=== PATIENT | female | born 1945 | race Caucasian/White ===

== ENCOUNTER 2017-10-11 09:35 | Inpatient (IN) | payer MEDICARE, SELFPAY ==
[2017-10-11] VITALS (12 sets, daily range): BP systolic 135–179; BP diastolic 56–83; PULSE 80–94; RESP 15–18; TEMP 36.8–37.2; O2SAT 97–100; BMI 30.1; BMI 28.8
--- NOTE | 2017-10-11 09:47 | EKG12_ITS ---
Test Reason : CP Blood Pressure : / mmHG Vent. Rate : 093 BPM Atrial Rate : 093 BPM P-R Int : 170 ms QRS Dur : 090 ms QT Int : 436 ms P-R-T Axes : 049 -04 068 degrees QTc Int : 542 ms Normal sinus rhythm Septal infarct , age undetermined Prolonged QT Abnormal ECG Confirmed by BENY JOHNSTON ([id number]), index editor ERMELINDA BYRD ([id number]) on 10/20/2017 6:04:47 PM Referred By: SCOTT Confirmed By:BENY JOHNSTON
--- NOTE | 2017-10-11 09:47 | RAD_ITS ---
STUDY: X-RAY CHEST REASON FOR EXAM: Female, 72 years old. Pain TECHNIQUE: Single AP portable view of the chest. COMPARISON: August 08, 2016 chest x-ray FINDINGS: There is persistent trace linear density in the lingula. There is no demonstrated pleural abnormality. There is borderline cardiomegaly. Normal mediastinum and lynn. Normal visualized pulmonary arteries. There is atherosclerotic calcification of the aortic arch with tortuosity. There are diffuse degenerative changes of the visualized thoracic spine. Normal visualized ribs, clavicles, and shoulders. There is no demonstrated abnormality of the visualized soft tissue structures of the upper abdomen. RAD/Chest 1 View (Portable) IMPRESSION: Persistent lingular atelectasis and/or scarring. Electronically Signed: Hilary Headley MD at 10:12 EDT Tel , Service support ,
[2017-10-11] MEDS: Nitroglycerin Oint 1 INCH PACKET TRANSDERM. (09:55)
--- NOTE | 2017-10-11 09:57 | ED.VISSUMM ---
- ER Visit Summary Date of Service: 10/11/17 Chief Complaint: Chest pain History of Present Illness: The patient is a [address] Dov Silveira, Dr. Brantd, and Dr. Dailey. Reports that she was awakened this morning at 8 AM by a substernal chest tightness that radiated to the left side of her neck. It was 10 at 10 worst and 6 out of 10 currently. Is worsened by exertion. She took 3 nitroglycerin with transient relief. She reports it makes her nauseated and diaphoretic. States this is similar to when she had problems with her heart in the past. Physical Examination: Vitals: Stable. Afebrile. General: Well-nourished and well-developed. Head: Normocephalic atraumatic. Neck: Supple, no lymphadenopathy. No JVD. Nontender. Cardiovascular: Regular rate and rhythm. 2 out of 6 systolic murmur. Respiratory: No respiratory distress. Clear to auscultation bilaterally. Abdominal: Soft, mild epigastric tenderness to palpation, nondistended, normal bowel sounds. No guarding, rebound, or peritoneal signs. Back: Nontender. Extremities: Nontender, no edema. Skin: Normal color, no rash. Neurologic: Alert and oriented ?3. Cranial nerves II through XII are intact. Normal strength and sensation. Psych: Normal affect. Test Results: EKG is sinus at [address] changes. Is unchanged from July 2016. Initial troponin is 0.035. LFTs marked for an albumin of 2.8, alk phos of 143. Lipase is normal. Chem-7 is more for CO2 33, creatinine 3.07, glucose 134. CBC is marked for an H&H 10.732.2, eosinophils of 8. Chest x-ray shows chronic changes. Emergency Department Course and Treatment: Patient was treated with aspirin had Nitropaste placed. She was given morphine and Zofran IV. She is resting comfortably at this time. Treatment Plan: Patient was discussed with Dr. Ibrhaim. She will be admitted to the hospital for further evaluation and treatment. Disposition: Admitted in improved condition. Impression: 1. Chest pain, atypical. 2. NAKUL score 4. 3. End-stage renal disease. This note was generated with [employer] software. It may contain incorrect words, spelling, and punctuation that were not noted in review of the chart prior to signing ED Disposition - Plan for ED Patient: Chief Complaint: Chest Pain Referrals: Thad Brandt MD [Primary Care Provider] -
[2017-10-11] MEDS: Morphine 4 MG/ML Syringe IV (09:59)
[2017-10-11] MEDS: Ondansetron 4 MG/2 ML Vial IV (09:59)
[2017-10-11] MEDS: 0.9% Normal Saline 1,000 ML 150 ML IV (10:00)
--- NOTE | 2017-10-11 10:00 | ED.DCSUM_ITS ---
- ER Visit Summary Date of Service: 10/11/17 Chief Complaint: Chest pain History of Present Illness: The patient is a [address] Dov Silveira, Dr. Brandt, and Dr. Dailey. Reports that she was awakened this morning at 8 AM by a substernal chest tightness that radiated to the left side of her neck. It was 10 at 10 worst and 6 out of 10 currently. Is worsened by exertion. She took 3 nitroglycerin with transient relief. She reports it makes her nauseated and diaphoretic. States this is similar to when she had problems with her heart in the past. Physical Examination: Vitals: Stable. Afebrile. General: Well-nourished and well-developed. Head: Normocephalic atraumatic. Neck: Supple, no lymphadenopathy. No JVD. Nontender. Cardiovascular: Regular rate and rhythm. 2 out of 6 systolic murmur. Respiratory: No respiratory distress. Clear to auscultation bilaterally. Abdominal: Soft, mild epigastric tenderness to palpation, nondistended, normal bowel sounds. No guarding, rebound, or peritoneal signs. Back: Nontender. Extremities: Nontender, no edema. Skin: Normal color, no rash. Neurologic: Alert and oriented ?3. Cranial nerves II through XII are intact. Normal strength and sensation. Psych: Normal affect. Test Results: EKG is sinus at [address] changes. Is unchanged from July 2016. Initial troponin is 0.035. LFTs marked for an albumin of 2.8 , alk phos of 143. Lipase is normal. Chem-7 is more for CO2 33, creatinine 3.07, glucose 134. CBC is marked for an H&H 10.732.2, eosinophils of 8. Chest x-ray shows chronic changes. Emergency Department Course and Treatment: Patient was treated with aspirin had Nitropaste placed. She was given morphine and Zofran IV. She is resting comfortably at this time. Treatment Plan: Patient was discussed with Dr. Ibrahim. She will be admitted to the hospital for further evaluation and treatment. Disposition: Admitted in improved condition. Impression: 1. Chest pain, atypical. 2. NAKUL score 4. 3. End-stage renal disease. This note was generated with [employer] software. It may contain incorrect words, spelling, and punctuation that were not noted in review of the chart prior to signing ED Disposition - Plan for ED Patient: Chief Complaint: Chest Pain Referrals: Thad Brandt MD [Primary Care Provider] -
[2017-10-11 10:09] LABS: Absolute Lymphocyte Count 1.57 X10^3/ul (0.83-4.51); Absolute Neutrophil Count 4.5 X10^3/uL (2.0-7.7); Basophil# 0.02 X10^3/uL; Basophil% 0.3 % (0-1); Eosinophil# 0.54 X10^3/uL; Eosinophils% 7.5 % (0-5); Hematocrit 32.2 % (37-47); Hemoglobin 10.7 g/dl (12.0-15.0); Lymphocyte # 1.57 X10^3/ul (4.0); Lymphocyte % 21.7 % (19-41); Mean Corp Hgb Conc 33.2 g/gl (32-36); Mean Corpuscular Hgb 31.8 pg (27.0-32.0); Mean Corpuscular Volume 95.8 fL (81-99); Mean Platelet Vol. 8.6 fl (6.2-12.0); Monocyte# 0.54 X10^3/uL; Monocyte% 7.5 % (0-10); Neutrophil # 4.54 X10^3/uL (2.7-7.7); Neutrophil % 62.7 % (47-70); Platelet Count 263 K/mm3 (150-450); RBC Distribution Width CV 15.8 % (11.6-14.6); Red Blood Count 3.36 M/mm3 (4.2-5.4); White Blood Count 7.2 K/mm3 (4.4-11.0)
[2017-10-11 10:10] LABS: POSITIVE COUNT NO; POSITIVE DIFFERENTIAL NO; POSITIVE MORPHOLOGY NO
[2017-10-11 10:26] LABS: AST(SGOT) 33 U/L (15-37); Alanine Aminotransfer ALT/SGPT 16 U/L (13-56); Albumin, Serum 2.8 g/dL (3.2-5.0); Alkaline Phosphatase 143 U/L (45-117); Bilirubin, Direct 0.11 mg/dL (0.00-0.30); Globulin 4.1 g/dL (2.2-4.2); Protein, Total 6.9 g/dL (6.4-8.2)
[2017-10-11 10:31] LABS: BUN 15 mg/dL (7-18); Creatinine, Serum 3.07 mg/dL (0.55-1.02); Glucose 134 mg/dL (74-106)
[2017-10-11 10:32] LABS: Anion Gap 6 (5-15); BUN/Creat Ratio 4.9 RATIO (10-20); Calcium,Total 8.8 mg/dL (8.5-10.1); Chloride 100 mmol/L (98-107); EST Glomerular Filtration Rate 16 mL/min (>60); Est Glom Filt Rate - Afr Amer 19 mL/min (>60); Estimated Creatinine Clearance 13.29 ml/min; Lipase 95 U/L (73-393); Potassium 3.5 mmol/L (3.5-5.1); Sodium Level 139 mmol/L (136-145)
--- NOTE | 2017-10-11 12:50 | NURSING ---
Patient does not know medications. Grand daughter sets up patient's medication at home and will be in later to update medication list.
--- NOTE | 2017-10-11 13:00 | EKG12_ITS ---
Test Reason : CP Blood Pressure : / mmHG Vent. Rate : 075 BPM Atrial Rate : 075 BPM P-R Int : 178 ms QRS Dur : 088 ms QT Int : 456 ms P-R-T Axes : 008 -03 066 degrees QTc Int : 509 ms Normal sinus rhythm Septal infarct , age undetermined Abnormal ECG Confirmed by SENA ARIAS, DONA ([id number]), video effects editor ERMELINDA BYRD ([id number]) on 10/24/2017 2:16:34 PM Referred By: ANGELICA Confirmed By:DONA SHETTY MD
[2017-10-11] MEDS: Glucerna Shake 120 ML LIQUID PO (13:49)
[2017-10-11] MEDS: Isosorbide DN 20 MG Tablet PO ×2 (13:49→19:59)
[2017-10-11] MEDS: Ipratropium/Albuterol Sulfate 3 ML AMPUL.NEB INHALATION (14:19)
--- NOTE | 2017-10-11 16:03 | PCM.HP.STD ---
<Marcello Krishnan - Last Filed: 10/11/17 16:03> Problem List (1) Chest pain Status: Acute (2) ESRD (end stage renal disease) Status: Chronic (3) Coronary artery disease Status: Chronic Comment: Status post stent (4) Type II diabetes mellitus Status: Chronic (5) Asthma Status: Chronic (6) Anemia of chronic disease Status: Chronic (7) Congestive heart failure Status: Chronic (8) Benign hypertension Status: Chronic History of Present Illness Date of Admission: 10/11/17 Chief Complaint: chest pain The patient is a 72 year old F with a hx of CAD prior stent x 1, pt of Dr. Silveira, hx CHF, ESRD, DMt2, asthma, obesity, who presents to the ER with chest pain. She woke up this mornign with severe 9/10 chest pain described as aching, across her anterior chest left > right side with radiation into her neck and pradeep that she felt was like a toothache, with radiation into her left arm and into her back. She broke out into a sweat and became dizzy and LH with the room spinning, and became very SOB. She states this happens about once every 2 months and she has not had it checked out for years, she just takes nitro at home. She did take three nitro at home today and after the third had some relief of pain to 7/10. She was brought to the ER and had no relief with morphine. At some point the pain let off spontaneously as she has no chest pain at all on the hospital floor. She has [address] stent and follows Dr[address] Silveira but admits she has not been following up. She was told she was supposed to have another stent placed about 2 years ago, but at that time she was on the border of needing dialysis and was told they would not do it until she started dialysis, then she never followed up. She follows a patient service technician pst in [place] but does not want to trave there anymore and is requesting a patient service technician pst closer to [place], specifically asking for Dr. Richardson. [] Past Medical History Past Medical History (Chronic Problems): Chronic Problems ESRD (end stage renal disease) (Chronic) Coronary artery disease (Chronic) Status post stent RTA (renal tubular acidosis) (Chronic) Type 4 Type II diabetes mellitus (Chronic) CKD (chronic kidney disease), stage II (Chronic) Cervicogenic headache (Chronic) Asthma (Chronic) Anemia of chronic disease (Chronic) Congestive heart failure (Chronic) Benign hypertension (Chronic) Allergies donepezil [From Aricept] Adverse Reaction (Verified 10/11/17 09:37) dizzy Home Medications: Ambulatory Orders Medication Instructions Recorded Albuterol IH (ProAir) [Proair Hfa] 2 puff INHALATION Q4H PRN PRN 07/04/14 Atorvastatin Calcium [Lipitor] 80 mg PO QHS 07/04/14 Carvedilol [Coreg (Beta Lela)] 12.5 mg PO BID 07/04/14 Clopidogrel Bisulfate [Plavix] 75 mg PO DAILY 07/04/14 Furosemide [Lasix] 80 mg PO DAILY 07/04/14 Sertraline HCl [Zoloft] 100 mg PO DAILY 07/04/14 Calcitriol [Rocaltrol] 0.25 mcg PO DAILY 01/23/16 Magnesium Oxide 400 mg PO DAILY 01/23/16 Aspirin E.C. [Ecotrin] 81 mg PO DAILY@0800 07/08/16 Cholecalciferol (Vitamin D3) 1,000 unit PO DAILY 07/29/16 [Vitamin D3] Ipratropium/Albuterol Sulfate 3 ml INHALATION Q6H.RT 07/29/16 [Duoneb] Nitroglycerin [Nitrostat] 0.4 mg SL PRN PRN 07/29/16 buPROPion XL [Wellbutrin Xl] 150 mg PO DAILY 07/29/16 Pantoprazole Sodium [Protonix] 40 mg PO DAILY #30 tablet 07/31/16 Fluticasone/Salmeterol [Advair 1 each IH BID 12/01/16 250-50 Diskus] hydrOXYzine pamoate capsule 25 mg PO BID PRN PRN 12/01/16 [Vistaril pamoate capsule] Acetaminophen [Tylenol Tablet] 650 mg PO Q4H PRN PRN tablet 12/03/16 Albuterol Aerosols [Ventolin 2.5 mg INHALATION Q4H PRN PRN 10/11/17 Aerosols] Isosorbide DN [Isordil] 20 mg PO BID 10/11/17 Ondansetron HCl [Zofran] 1 tab PO BID PRN PRN 10/11/17 Surgical History: appendectomy, cholecystectomy Psychiatric History: No pertinent psych hx RETORT OPERATOR History: No pertinent RETORT OPERATOR history Lives: With Family Smoking Status: Never smoker Alcohol: None Drugs: None - *Family History Maternal History Items: Heart Disease Paternal History Items: Cancer - stomach, Heart Disease Review of Systems Constitutional: Denies: Chills, Fever, Weight Change HEENT: Denies: Head Aches, Sinus Congestion, Sinus Drainage Cardiovascular: Reports: Chest Pain, Light Headedness. Denies: Palpitations Respiratory: Reports: Shortness of Breath, Shortness of breath at rest. Denies: Cough, Sputum production Gastrointestinal: Denies: Abdominal Pain, Nausea, Vomiting Genitourinary: Denies: Dysuria Musculoskeletal: Denies: Joint Pain, Joint Tenderness Skin: Denies: Rash, Wounds Neurological: Denies: Numbness, Tingling, Focal weakness Psychiatric: Denies: Anxiety, Depression, Homicidal Ideations, Suicidal Ideations Hematologic/ Lymphatic: Denies: Easy Bruising, Easy Bleeding VTE Information - Inpt Only VTE Present on Admission: No VTE Mechan Device Prophylaxis: None VTE Pharm Prophylaxis ordered?: Yes Patient Problems: Active and Suspected Problems Chest pain (Acute) - Physical Exam General: Alert, Oriented x3, Cooperative HEENT: Atraumatic, PERRLA, EOMI, Normocephalic Neck: Supple, No JVD, Negative Carotid Bruits Lungs: Clear to auscultation, Normal air movement Cardiovascular: Regular rate, Regular Rhythm, Murmur - 2/6 systolic murmur Abdomen: Bowel Sounds Present, Soft, Non Tender Extremities: No edema, Capillary Refill Less than 3 Seconds Skin: No rashes, No breakdown Musculoskeletal: No Tenderness to Palpation of Joints or Extremities Neurological: Cranial nerves II-XII grossly intact Psych/Mental Status: Normal Affect, Appropriate, Alert and oriented to time, place, person, mood and affect Vital Signs Temp Pulse Resp BP Pulse Ox 98.9 F 84 16 136/63 H 98 10/11/17 12:50 10/11/17 14:19 10/11/17 14:19 10/11/17 12:50 10/11/17 14:19 Oxygen Delivery Method Room Air Weight: 71.6 kg Body Mass Index (BMI) 28.8 Laboratory Tests Past 24 Hrs 10/11/17 13:15 Troponin I 0.034 Assessment/Plan All Active Problems Chest pain (Acute) Confusion (Resolved) UTI (urinary tract infection) (Resolved) Chest pressure (Resolved) Healthcare-associated pneumonia (Resolved) 1. Chest pain - risk factors include symptomology, relieved with nitro, prior stent and known CAD, HTN, CHF, DMt2, family hx. Trop neg. CXR neg. EKG neg. Maintain on tele, cycle enzymes and obtain stress test on friday. Follows [facility] as o/p. 2. CHF - ? diastolic, stable, last echo here 2014 with EF50%. 3. DMt2 - currently not on anything. Check A1C. Diabetic diet. 4. ESRD - consult Richardson tomorrow to resume dialysis, MWF, had yesterday. 5. CAD - on asa, plavix, statin, coreg, isordil, hx 1 stent. 6. HTN - trending high. monitor and adjust as needed 7. Anx/Dep - home meds. DVT ppx: heparin DC planning: stress friday. This patient was seen by Marcello Krishnan PA-C under the supervision of Doctor Patrice. <Carlitos Ibrahim - Last Filed: 10/11/17 16:30> Problem List (1) Chest pain Status: Acute (2) ESRD (end stage renal disease) Status: Chronic (3) Chest pressure Status: Resolved (4) Confusion Status: Resolved (5) Healthcare-associated pneumonia Status: Resolved (6) UTI (urinary tract infection) Status: Resolved (7) Anemia of chronic disease Status: Chronic (8) Asthma Status: Chronic (9) Benign hypertension Status: Chronic (10) Congestive heart failure Status: Chronic (11) Coronary artery disease Status: Chronic Comment: Status post stent (12) RTA (renal tubular acidosis) Status: Chronic Comment: Type 4 (13) Type II diabetes mellitus Status: Chronic History of Present Illness The patient is a 72 year old F Sonu with chest pain for 1 day. Patient took some nitroglycerin without relief. Presents emergency room received additional pain medications which did alleviate her pain. Patient does have a history of coronary artery disease with a stent. Patient stated this chest pain is similar to then.. Patient states that she has been told that she needs to have another stent placed but was unable to have a heart catheterization until she was started on dialysis. Has not followed up recently. [] Past Medical History Allergies donepezil [From Aricept] Adverse Reaction (Verified 10/11/17 09:37) dizzy Surgical History: appendectomy, cholecystectomy Psychiatric History: No pertinent psych hx RETORT OPERATOR History: No pertinent RETORT OPERATOR history Smoking Status: Never smoker Alcohol: None Drugs: None - *Family History Maternal History Items: Heart Disease Paternal History Items: Cancer, Heart Disease Review of Systems Constitutional: Denies: Chills, Fever, Weight Change HEENT: Denies: Head Aches, Sinus Congestion, Sinus Drainage Cardiovascular: Reports: Chest Pain, Light Headedness. Denies: Palpitations Respiratory: Reports: Shortness of Breath, Shortness of breath at rest. Denies: Cough, Sputum production Gastrointestinal: Denies: Abdominal Pain, Nausea, Vomiting Genitourinary: Denies: Dysuria Musculoskeletal: Denies: Joint Pain, Joint Tenderness Skin: Denies: Rash, Wounds Neurological: Denies: Focal weakness, Numbness, Tingling Psychiatric: Denies: Anxiety, Depression, Homicidal Ideations, Suicidal Ideations Hematologic/ Lymphatic: Denies: Easy Bruising, Easy Bleeding VTE Information - Inpt Only VTE Present on Admission: No VTE Mechan Device Prophylaxis: None VTE Pharm Prophylaxis ordered?: Yes - Physical Exam General: Alert, Cooperative HEENT: Atraumatic, PERRLA, EOMI, Normocephalic Neck: No JVD, Thyroid Normal Size and Texture Lungs: Clear to auscultation, Normal air movement Cardiovascular: Regular rate, Regular Rhythm Abdomen: Bowel Sounds Present, Soft, Non Tender Skin: No rashes, No breakdown Psych/Mental Status: Normal Affect, Appropriate Vital Signs Temp Pulse Resp BP Pulse Ox 37.2 C 84 16 136/63 H 98 10/11/17 12:50 10/11/17 14:19 10/11/17 14:19 10/11/17 12:50 10/11/17 14:19 Oxygen Delivery Method Room Air Weight: 71.6 kg Body Mass Index (BMI) 28.8 Laboratory Tests Past 24 Hrs 10/11/17 10/11/17 13:15 16:00 Troponin I 0.034 Pending Assessment/Plan Patient seen and examined independently. Data reviewed. I agree with the above note by the physician cafeteria assistant. 1. Chest pain Currently resolved Patient will have a nuclear chemical stress test performed on the fourth Depending on the results patient will either be discharged will have cardiology consulted. Will need to coordinate dialysis if patient does require a left heart catheterization given the fact that she is on dialysis chronically. 2. End-stage renal disease Patient wishing to transfer for her service from Dr. Moreau to Dr. Richardson. Patient states that she wishes to follow Dr. Richardson as he and his group have services in this area. Patient last had dialysis on the first. Next dialysis is due on the fourth. Patient is not in need of urgent dialysis at this point time. We will place a formal consultation to Dr. Richardson on the third for dialysis Code Visit OBSV E&M: [id number] Initial observation care L2
[2017-10-11] MEDS: 0.9% NaCl Peripheral Flush Adult/Peds IV (16:04)
--- NOTE | 2017-10-11 16:17 | HP.PCM_ITS ---
<Marcello Krishnan - Last Filed: 10/11/17 16:03> Problem List (1) Chest pain Status: Acute (2) ESRD (end stage renal disease) Status: Chronic (3) Coronary artery disease Status: Chronic Comment: Status post stent (4) Type II diabetes mellitus Status: Chronic (5) Asthma Status: Chronic (6) Anemia of chronic disease Status: Chronic (7) Congestive heart failure Status: Chronic (8) Benign hypertension Status: Chronic History of Present Illness Date of Admission: 10/11/17 Chief Complaint: chest pain The patient is a 72 year old F with a hx of CAD prior stent x 1, pt of Dr. Silveira, hx CHF, ESRD, DMt2, asthma, obesity, who presents to the ER with chest pain. She woke up this mornign with severe 9/10 chest pain described as aching, across her anterior chest left > right side with radiation into her neck and pradeep that she felt was like a toothache, with radiation into her left arm and into her back. She broke out into a sweat and became dizzy and LH with the room spinning, and became very SOB. She states this happens about once every 2 months and she has not had it checked out for years, she just takes nitro at home. She did take three nitro at home today and after the third had some relief of pain to 7/10. She was brought to the ER and had no relief with morphine. At some point the pain let off spontaneously as she has no chest pain at all on the hospital floor. She has [address] Silveira but admits she has not been following up. She was told she was supposed to have another stent placed about 2 years ago, but at that time she was on the border of needing dialysis and was told they would not do it until she started dialysis , then she never followed up. She follows a phone banker in [place] but does not want to trave there anymore and is requesting a phone banker closer to [place], specifically asking for Dr. Richardson. [] Past Medical History Past Medical History (Chronic Problems): Chronic Problems ESRD (end stage renal disease) (Chronic) Coronary artery disease (Chronic) Status post stent RTA (renal tubular acidosis) (Chronic) Type 4 Type II diabetes mellitus (Chronic) CKD (chronic kidney disease), stage II (Chronic) Cervicogenic headache (Chronic) Asthma (Chronic) Anemia of chronic disease (Chronic) Congestive heart failure (Chronic) Benign hypertension (Chronic) Allergies donepezil [From Aricept] Adverse Reaction (Verified 10/11/17 09:37) dizzy Home Medications: Ambulatory Orders Medication Instructions Recorded Albuterol IH (ProAir) [Proair Hfa] 2 puff INHALATION Q4H PRN PRN 07/04/14 Atorvastatin Calcium [Lipitor] 80 mg PO QHS 07/04/14 Carvedilol [Coreg (Beta Lela)] 12.5 mg PO BID 07/04/14 Clopidogrel Bisulfate [Plavix] 75 mg PO DAILY 07/04/14 Furosemide [Lasix] 80 mg PO DAILY 07/04/14 Sertraline HCl [Zoloft] 100 mg PO DAILY 07/04/14 Calcitriol [Rocaltrol] 0.25 mcg PO DAILY 01/23/16 Magnesium Oxide 400 mg PO DAILY 01/23/16 Aspirin E.C. [Ecotrin] 81 mg PO DAILY@0800 07/08/16 Cholecalciferol (Vitamin D3) 1,000 unit PO DAILY 07/29/16 [Vitamin D3] Ipratropium/Albuterol Sulfate 3 ml INHALATION Q6H.RT 07/29/16 [Duoneb] Nitroglycerin [Nitrostat] 0.4 mg SL PRN PRN 07/29/16 buPROPion XL [Wellbutrin Xl] 150 mg PO DAILY 07/29/16 Pantoprazole Sodium [Protonix] 40 mg PO DAILY #30 tablet 07/31/16 Fluticasone/Salmeterol [Advair 1 each IH BID 12/01/16 250-50 Diskus] hydrOXYzine pamoate capsule 25 mg PO BID PRN PRN 12/01/16 [Vistaril pamoate capsule] Acetaminophen [Tylenol Tablet] 650 mg PO Q4H PRN PRN tablet 12/03/16 Albuterol Aerosols [Ventolin 2.5 mg INHALATION Q4H PRN PRN 10/11/17 Aerosols] Isosorbide DN [Isordil] 20 mg PO BID 10/11/17 Ondansetron HCl [Zofran] 1 tab PO BID PRN PRN 10/11/17 Surgical History: appendectomy, cholecystectomy Psychiatric History: No pertinent psych hx 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 Denies: Palpitations Respiratory: Reports: Shortness of Breath, Shortness of breath at rest. Denies : Cough, Sputum production Gastrointestinal: Denies: Abdominal Pain, Nausea, Vomiting Genitourinary: Denies: Dysuria Musculoskeletal: Denies: Joint Pain, Joint Tenderness Skin: Denies: Rash, Wounds Neurological: Denies: Numbness, Tingling, Focal weakness Psychiatric: Denies: Anxiety, Depression, Homicidal Ideations, Suicidal Ideations Hematologic/ Lymphatic: Denies: Easy Bruising, Easy Bleeding VTE Information - Inpt Only VTE Present on Admission: No VTE Mechan Device Prophylaxis: None VTE Pharm Prophylaxis ordered?: Yes Patient Problems: Active and Suspected Problems Chest pain (Acute) - Physical Exam General: Alert, Oriented x3, Cooperative HEENT: Atraumatic, PERRLA, EOMI, Normocephalic Neck: Supple, No JVD, Negative Carotid Bruits Lungs: Clear to auscultation, Normal air movement Cardiovascular: Regular rate, Regular Rhythm, Murmur - 2/6 systolic murmur Abdomen: Bowel Sounds Present, Soft, Non Tender Extremities: No edema, Capillary Refill Less than 3 Seconds Skin: No rashes, No breakdown Musculoskeletal: No Tenderness to Palpation of Joints or Extremities Neurological: Cranial nerves II-XII grossly intact Psych/Mental Status: Normal Affect, Appropriate, Alert and oriented to time, place, person, mood and affect Vital Signs Temp Pulse Resp BP Pulse Ox 98.9 F 84 16 136/63 H 98 10/11/17 12:50 10/11/17 14:19 10/11/17 14:19 10/11/17 12:50 10/11/17 14:19 Oxygen Delivery Method Room Air Weight: 71.6 kg Body Mass Index (BMI) 28.8 Laboratory Tests Past 24 Hrs 10/11/17 13:15 Troponin I 0.034 Assessment/Plan All Active Problems Chest pain (Acute) Confusion (Resolved) UTI (urinary tract infection) (Resolved) Chest pressure (Resolved) Healthcare-associated pneumonia (Resolved) 1. Chest pain - risk factors include symptomology, relieved with nitro, prior stent and known CAD, HTN, CHF, DMt2, family hx. Trop neg. CXR neg. EKG neg. Maintain on tele, cycle enzymes and obtain stress test on friday. Follows [facility] as o/p. 2. CHF - ? diastolic, stable, last echo here 2014 with EF50%. 3. DMt2 - currently not on anything. Check A1C. Diabetic diet. 4. ESRD - consult Richardson tomorrow to resume dialysis, MWF, had yesterday. 5. CAD - on asa, plavix, statin, coreg, isordil, hx 1 stent. 6. HTN - trending high. monitor and adjust as needed 7. Anx/Dep - home meds. DVT ppx: heparin DC planning: stress friday. This patient was seen by Marcello Krishnan PA-C under the supervision of Doctor Patrice. <Carlitos Ibrahim - Last Filed: 10/11/17 16:30> Problem List (1) Chest pain Status: Acute (2) ESRD (end stage renal disease) Status: Chronic (3) Chest pressure Status: Resolved (4) Confusion Status: Resolved (5) Healthcare-associated pneumonia Status: Resolved (6) UTI (urinary tract infection) Status: Resolved (7) Anemia of chronic disease Status: Chronic (8) Asthma Status: Chronic (9) Benign hypertension Status: Chronic (10) Congestive heart failure Status: Chronic (11) Coronary artery disease Status: Chronic Comment: Status post stent (12) RTA (renal tubular acidosis) Status: Chronic Comment: Type 4 (13) Type II diabetes mellitus Status: Chronic History of Present Illness The patient is a 72 year old F Sonu with chest pain for 1 day. Patient took some nitroglycerin without relief. Presents emergency room received additional pain medications which did alleviate her pain. Patient does have a history of coronary artery disease with a stent. Patient stated this chest pain is similar to then.. Patient states that she has been told that she needs to have another stent placed but was unable to have a heart catheterization until she was started on dialysis. Has not followed up recently. 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 Denies: Palpitations Respiratory: Reports: Shortness of Breath, Shortness of breath at rest. Denies : Cough, Sputum production Gastrointestinal: Denies: Abdominal Pain, Nausea, Vomiting Genitourinary: Denies: Dysuria Musculoskeletal: Denies: Joint Pain, Joint Tenderness Skin: Denies: Rash, Wounds Neurological: Denies: Focal weakness, Numbness, Tingling Psychiatric: Denies: Anxiety, Depression, Homicidal Ideations, Suicidal Ideations Hematologic/ Lymphatic: Denies: Easy Bruising, Easy Bleeding VTE Information - Inpt Only VTE Present on Admission: No VTE Mechan Device Prophylaxis: None VTE Pharm Prophylaxis ordered?: Yes - Physical Exam General: Alert, Cooperative HEENT: Atraumatic, PERRLA, EOMI, Normocephalic Neck: No JVD, Thyroid Normal Size and Texture Lungs: Clear to auscultation, Normal air movement Cardiovascular: Regular rate, Regular Rhythm Abdomen: Bowel Sounds Present, Soft, Non Tender Skin: No rashes, No breakdown Psych/Mental Status: Normal Affect, Appropriate Vital Signs Temp Pulse Resp BP Pulse Ox 37.2 C 84 16 136/63 H 98 10/11/17 12:50 10/11/17 14:19 10/11/17 14:19 10/11/17 12:50 10/11/17 14:19 Oxygen Delivery Method Room Air Weight: 71.6 kg Body Mass Index (BMI) 28.8 Laboratory Tests Past 24 Hrs 10/11/17 10/11/17 13:15 16:00 Troponin I 0.034 Pending Assessment/Plan Patient seen and examined independently. Data reviewed. I agree with the above note by the physician medicine assistant. 1. Chest pain * Currently resolved * Patient will have a nuclear chemical stress test performed on the fourth * Depending on the results patient will either be discharged will have cardiology consulted. * Will need to coordinate dialysis if patient does require a left heart catheterization given the fact that she is on dialysis chronically. 2. End-stage renal disease * Patient wishing to transfer for her service from Dr. Moreau to Dr. Richardson. Patient states that she wishes to follow Dr. Richardson as he and his group have services in this area. * Patient last had dialysis on the first. Next dialysis is due on the fourth. Patient is not in need of urgent dialysis at this point time. We will place a formal consultation to Dr. Richardson on the third for dialysis Code Visit OBSV E&M: [id number] Initial observation care L2
[2017-10-11 16:48] LABS: Hemoglobin A1c 5.5 % (4.2-6.3)
[2017-10-11] MEDS: Acetaminophen 325 MG Tablet 650 MG PO (19:56)
[2017-10-11] MEDS: Atorvastatin Calcium 80 MG Tablet PO (22:39)
[2017-10-11] MEDS: Carvedilol 12.5 MG Tablet PO (22:39)
[2017-10-11] MEDS: Heparin Injection (Vial) 5,000 UNIT/ML VIAL 5000 UNIT SC (22:39)
[2017-10-11 22:41] LABS: Bedside Glucose 144 mg/dL (70-110)
[2017-10-12] VITALS (14 sets, daily range): BP systolic 112–154; BP diastolic 51–78; PULSE 66–83; RESP 14–18; TEMP 36.3–37.2; O2SAT 94–98
[2017-10-12] MEDS: Nystatin Powder 15gm Bottle 1 APPLIC TOPICAL ×3 (05:19→21:42)
[2017-10-12] MEDS: Isosorbide DN 20 MG Tablet PO ×3 (05:19→17:28)
[2017-10-12 05:41] LABS: Anion Gap 7 (5-15); BUN 23 mg/dL (7-18); BUN/Creat Ratio 6.2 RATIO (10-20); Calcium,Total 8.7 mg/dL (8.5-10.1); Chloride 101 mmol/L (98-107); Creatinine, Serum 3.73 mg/dL (0.55-1.02); EST Glomerular Filtration Rate 13 mL/min (>60); Est Glom Filt Rate - Afr Amer 15 mL/min (>60); Estimated Creatinine Clearance 10.94 ml/min; Glucose 109 mg/dL (74-106); Potassium 3.8 mmol/L (3.5-5.1); Sodium Level 139 mmol/L (136-145)
[2017-10-12] MEDS: Ipratropium/Albuterol Sulfate 3 ML AMPUL.NEB INHALATION ×2 (06:53→13:18)
[2017-10-12] MEDS: Budesonide Respules 0.5 MG/2 ML AMPUL.NEB. INHALATION (06:53)
[2017-10-12 07:01] LABS: Bedside Glucose 113 mg/dL (70-110)
--- NOTE | 2017-10-12 08:33 | EKG12_ITS ---
Test Reason : AM EKG Blood Pressure : / mmHG Vent. Rate : 073 BPM Atrial Rate : 073 BPM P-R Int : 178 ms QRS Dur : 090 ms QT Int : 432 ms P-R-T Axes : 021 019 071 degrees QTc Int : 475 ms Normal sinus rhythm Septal infarct , age undetermined Abnormal ECG Confirmed by SENA ARIAS, DONA ([id number]), order editor ERMELINDA BYRD ([id number] on 10/24/2017 2:13:13 PM Referred By: ANGELICA Confirmed By:DONA SHETTY MD
[2017-10-12] MEDS: Aspirin E.C. 81 MG Tablet PO (09:00)
[2017-10-12] MEDS: Heparin Injection (Vial) 5,000 UNIT/ML VIAL 5000 UNIT SC ×2 (09:00→21:42)
[2017-10-12] MEDS: Carvedilol 12.5 MG Tablet PO ×2 (09:00→21:42)
[2017-10-12] MEDS: Sertraline 100 MG Tablet PO (09:01)
[2017-10-12] MEDS: Calcitriol 0.25 MCG Capsule PO (09:01)
[2017-10-12] MEDS: Pantoprazole Sodium 40 MG Tablet PO (09:01)
[2017-10-12] MEDS: buPROPion (XL) 150 MG TABLET.XL PO (09:01)
[2017-10-12] MEDS: Magnesium Oxide 400 MG Tablet PO (09:01)
[2017-10-12] MEDS: Clopidogrel Bisulfate 75 MG Tablet PO (09:01)
[2017-10-12] MEDS: Furosemide 80 MG Tablet PO (09:01)
[2017-10-12] MEDS: Acetaminophen 325 MG Tablet 650 MG PO (09:02)
[2017-10-12] MEDS: Ondansetron 8 MG Tablet 4 MG PO ×2 (09:19→18:45)
[2017-10-12 11:40] LABS: Bedside Glucose 102 mg/dL (70-110)
--- NOTE | 2017-10-12 13:22 | PCM.PROGNOTE ---
<Marcello Krishnan - Last Filed: 10/12/17 13:22> Patient Problems: Active and Suspected Problems Chest pain (Acute) Subjective: pt was up one time this AM to use the bathroom. She felt left sided arm pain and some left breast pain that is reproducible if she pushes on it. She has also been having more problems eating, and swallowing pills. She feels like she is choking. She has seen Dr. Sharp in the past for this. She believes at one point she had her throat stretched, but is not sure why. No SOB this AM. No diaphoresis. She did feel dizzy when she stood up. - Physical Exam General: Alert, Oriented x3, Cooperative HEENT: Atraumatic, PERRLA, EOMI, Normocephalic Neck: Supple, No JVD, Negative Carotid Bruits Lungs: Clear to auscultation, Normal air movement Cardiovascular: Regular rate, No murmurs Abdomen: Bowel Sounds Present, Soft, Non Tender Extremities: No edema, Capillary Refill Less than 3 Seconds Skin: No rashes, No breakdown Musculoskeletal: No Tenderness to Palpation of Joints or Extremities Neurological: Cranial nerves II-XII grossly intact Psych/Mental Status: Normal Affect, Appropriate, Alert and oriented to time, place, person, mood and affect Vital Signs Temp Pulse Resp BP Pulse Ox 98.4 F 71 15 139/77 H 95 10/12/17 10:30 10/12/17 12:10 10/12/17 10:30 10/12/17 12:10 10/12/17 10:30 Oxygen Delivery Method Room Air Weight: 71.6 kg Body Mass Index (BMI) 28.8 Orthostatic Vital Signs Start: 10/12/17 12:09 Freq: q24h Status: Active Protocol: Activity Type Activity Date Activity User E-Sign Co-Sign Detail Recorded Client Recorded Date Recorded By Document 10/12/17 12:10 [facility] [id number] 10/12/17 12:25 [facility] 10/12/17 12:10 Orthostatic Vitals Standing -Extremity Use Right Arm -Pulse Rate (60-100) 79 Sitting -Blood Pressure (90/60-120/80) 127/51 H -Extremity Use Right Arm -Pulse Rate (60-100) 70 Lying -Blood Pressure (90/60-120/80) 139/77 H -Extremity Use Right Arm -Pulse Rate (60-100) 71 Intake and Output for Last 24 Hours 10/10/17 10/11/17 10/12/17 23:59 23:59 23:59 Intake Total 390 / 390 170 / 170 Output Total 0 / 0 Balance 390 / 390 170 / 170 Laboratory Tests Past 24 Hrs 10/11/17 10/11/17 10/12/17 13:15 16:00 04:40 Sodium 139 Potassium 3.8 Chloride 101 Carbon Dioxide 31.0 Anion Gap 7 BUN 23 H Creatinine 3.73 H Estim Creat Clear Calc 10.94 Est GFR (MDRD) Af Amer 15 L Est GFR (MDRD) Non-Af 13 L BUN/Creatinine Ratio 6.2 L Glucose 109 H Calcium 8.7 Troponin I 0.034 0.049 H POC Glucose 10/12/17 10/12/17 10/11/17 11:30 06:40 22:37 POC Glucose 102 113 H 144 H Medical Necessity - Tobacco Use Smoking Status: Never smoker Assessment/Plan All Active Problems Chest pain (Acute) Confusion (Resolved) UTI (urinary tract infection) (Resolved) Chest pressure (Resolved) Healthcare-associated pneumonia (Resolved) 1. Chest pain - risk factors include symptomology, relieved with nitro, prior stent and known CAD, HTN, CHF, DMt2, family hx. Trop neg. CXR neg. EKG neg. Maintain on tele, cycle enzymes and obtain stress test on Friday. Follows [facility] as o/p. -Repeat EKG today with nonspecific changes. -Last troponin with mild bump to indeterminate level 2. Orthostatic hypotension - + orthos today. + dizzy on standing. This will be difficult to control given her CHF and ESRD and chest pain. For now, will advise behavioral modification. 2. CHF - ? diastolic, stable, last echo here 2014 with EF50%. 3. DMt2 - currently not on anything. A1C with good control. Continue with dietary control only. 4. ESRD - pt requesting to transfer care to Dr. Leal service. consult Dylan to resume dialysis, MWF, had yesterday. 5. CAD - on asa, plavix, statin, coreg, isordil, hx 1 stent. 6. HTN - trending high. monitor and adjust as needed 7. Anx/Dep - home meds. 8. Dysphagia - speech therapy eval. Follow up with [facility] as o/p. May need another EGD/dilatation. ? hx strictures. DVT ppx: heparin DC planning: stress Friday. This patient was seen by Marcello Krishnan PA-C under the supervision of Doctor Patrice. <Carlitos Ibrahim - Last Filed: 10/12/17 14:05> Subjective: Had some left lateral chest pain. - Physical Exam General: Alert, No apparent distress HEENT: Atraumatic Neck: No Nodes, Thyroid Normal Size and Texture Lungs: Clear to auscultation, Normal air movement, No rhonchi, No wheeze Cardiovascular: Regular rate, Regular Rhythm, Normal S1, Normal S2, No murmurs Abdomen: Bowel Sounds Present, Soft, Non Tender, Non-Distended Extremities: No edema, No Calf Tenderness Psych/Mental Status: Normal Affect, Appropriate Vital Signs Temp Pulse Resp BP Pulse Ox 36.9 C 74 16 139/77 H 95 10/12/17 10:30 10/12/17 13:18 10/12/17 13:18 10/12/17 12:10 10/12/17 10:30 Oxygen Delivery Method Room Air Weight: 71.6 kg Body Mass Index (BMI) 28.8 Orthostatic Vital Signs Start: 10/12/17 12:09 Freq: q24h Status: Active Protocol: Activity Type Activity Date Activity User E-Sign Co-Sign Detail Recorded Client Recorded Date Recorded By Document 10/12/17 12:10 [facility] [id number] 10/12/17 12:25 [facility] 10/12/17 12:10 Orthostatic Vitals Standing -Extremity Use Right Arm -Pulse Rate (60-100) 79 Sitting -Blood Pressure (90/60-120/80) 127/51 H -Extremity Use Right Arm -Pulse Rate (60-100) 70 Lying -Blood Pressure (90/60-120/80) 139/77 H -Extremity Use Right Arm -Pulse Rate (60-100) 71 Intake and Output for Last 24 Hours 10/10/17 10/11/17 10/12/17 23:59 23:59 23:59 Intake Total 390 / 390 170 / 170 Output Total 0 / 0 Balance 390 / 390 170 / 170 Laboratory Tests Past 24 Hrs 10/11/17 10/12/17 16:00 04:40 Sodium 139 Potassium 3.8 Chloride 101 Carbon Dioxide 31.0 Anion Gap 7 BUN 23 H Creatinine 3.73 H Estim Creat Clear Calc 10.94 Est GFR (MDRD) Af Amer 15 L Est GFR (MDRD) Non-Af 13 L BUN/Creatinine Ratio 6.2 L Glucose 109 H Calcium 8.7 Troponin I 0.049 H POC Glucose 10/12/17 10/12/17 10/11/17 11:30 06:40 22:37 POC Glucose 102 113 H 144 H Assessment/Plan Patient seen and examined independently. Data reviewed. I agree with the above note by the physician acute care assistant. 1. chest pain. Marginal elevation in troponins to 0.049. Plan is for chemical nuclear stress test performed on October 13. Based on those results, patient will be discharged or have cardiology on consultation. 2. End-stage renal disease: Consultation to nephrology for dialysis. Patient will be due for dialysis on the . If patient does require a heart catheterization that also need to be coordinated with that as well. Code Visit OBSV E&M: [id number] Subsequent observation care L2
--- NOTE | 2017-10-12 13:33 | PN_ITS ---
<Marcello Krishnan - Last Filed: 10/12/17 13:22> Patient Problems: Active and Suspected Problems Chest pain (Acute) Subjective: pt was up one time this AM to use the bathroom. She felt left sided arm pain and some left breast pain that is reproducible if she pushes on it. She has also been having more problems eating, and swallowing pills. She feels like she is choking. She has seen Dr. Sahrp in the past for this. She believes at one point she had her throat stretched, but is not sure why. No SOB this AM. No diaphoresis. She did feel dizzy when she stood up. - Physical Exam General: Alert, Oriented x3, Cooperative HEENT: Atraumatic, PERRLA, EOMI, Normocephalic Neck: Supple, No JVD, Negative Carotid Bruits Lungs: Clear to auscultation, Normal air movement Cardiovascular: Regular rate, No murmurs Abdomen: Bowel Sounds Present, Soft, Non Tender Extremities: No edema, Capillary Refill Less than 3 Seconds Skin: No rashes, No breakdown Musculoskeletal: No Tenderness to Palpation of Joints or Extremities Neurological: Cranial nerves II-XII grossly intact Psych/Mental Status: Normal Affect, Appropriate, Alert and oriented to time, place, person, mood and affect Vital Signs Temp Pulse Resp BP Pulse Ox 98.4 F 71 15 139/77 H 95 10/12/17 10:30 10/12/17 12:10 10/12/17 10:30 10/12/17 12:10 10/12/17 10:30 Oxygen Delivery Method Room Air Weight: 71.6 kg Body Mass Index (BMI) 28.8 Orthostatic Vital Signs Start: 10/12/17 12:09 Freq: q24h Status: Active Protocol: Activity Type Activity Date Activity User E-Sign Co-Sign Detail Recorded Client Recorded Date Recorded By Document 10/12/17 12:10 [facility] [place] [id number] 10/12/17 12:25 [facility] [place] 10/12/17 12:10 Orthostatic Vitals Standing -Extremity Use Right Arm -Pulse Rate (60-100) 79 Sitting -Blood Pressure (90/60-120/80) 127/51 H -Extremity Use Right Arm -Pulse Rate (60-100) 70 Lying -Blood Pressure (90/60-120/80) 139/77 H -Extremity Use Right Arm -Pulse Rate (60-100) 71 Intake and Output for Last 24 Hours 10/10/17 10/11/17 10/12/17 23:59 23:59 23:59 Intake Total 390 / 390 170 / 170 Output Total 0 / 0 Balance 390 / 390 170 / 170 Laboratory Tests Past 24 Hrs 10/11/17 10/11/17 10/12/17 13:15 16:00 04:40 Sodium 139 Potassium 3.8 Chloride 101 Carbon Dioxide 31.0 Anion Gap 7 BUN 23 H Creatinine 3.73 H Estim Creat Clear Calc 10.94 Est GFR (MDRD) Af Amer 15 L Est GFR (MDRD) Non-Af 13 L BUN/Creatinine Ratio 6.2 L Glucose 109 H Calcium 8.7 Troponin I 0.034 0.049 H POC Glucose 10/12/17 10/12/17 10/11/17 11:30 06:40 22:37 POC Glucose 102 113 H 144 H Medical Necessity - Tobacco Use Smoking Status: Never smoker Assessment/Plan All Active Problems Chest pain (Acute) Confusion (Resolved) UTI (urinary tract infection) (Resolved) Chest pressure (Resolved) Healthcare-associated pneumonia (Resolved) 1. Chest pain - risk factors include symptomology, relieved with nitro, prior stent and known CAD, HTN, CHF, DMt2, family hx. Trop neg. CXR neg. EKG neg. Maintain on tele, cycle enzymes and obtain stress test on Friday. Follows Raoul as o/p. -Repeat EKG today with nonspecific changes. -Last troponin with mild bump to indeterminate level 2. Orthostatic hypotension - + orthos today. + dizzy on standing. This will be difficult to control given her CHF and ESRD and chest pain. For now, will advise behavioral modification. 2. CHF - ? diastolic, stable, last echo here 2014 with EF50%. 3. DMt2 - currently not on anything. A1C with good control. Continue with dietary control only. 4. ESRD - pt requesting to transfer care to Dr. Leal service. consult Dylan to resume dialysis, MWF, had yesterday. 5. CAD - on asa, plavix, statin, coreg, isordil, hx 1 stent. 6. HTN - trending high. monitor and adjust as needed 7. Anx/Dep - home meds. 8. Dysphagia - speech therapy eval. Follow up with Aron as o/p. May need another EGD/dilatation. ? hx strictures. DVT ppx: heparin DC planning: stress Friday. This patient was seen by Marcello Krishnan PA-C under the supervision of Doctor Patrice. <Carlitos Ibrahim - Last Filed: 10/12/17 14:05> Subjective: Had some left lateral chest pain. - Physical Exam General: Alert, No apparent distress HEENT: Atraumatic Neck: No Nodes, Thyroid Normal Size and Texture Lungs: Clear to auscultation, Normal air movement, No rhonchi, No wheeze Cardiovascular: Regular rate, Regular Rhythm, Normal S1, Normal S2, No murmurs Abdomen: Bowel Sounds Present, Soft, Non Tender, Non-Distended Extremities: No edema, No Calf Tenderness Psych/Mental Status: Normal Affect, Appropriate Vital Signs Temp Pulse Resp BP Pulse Ox 36.9 C 74 16 139/77 H 95 10/12/17 10:30 10/12/17 13:18 10/12/17 13:18 10/12/17 12:10 10/12/17 10:30 Oxygen Delivery Method Room Air Weight: 71.6 kg Body Mass Index (BMI) 28.8 Orthostatic Vital Signs Start: 10/12/17 12:09 Freq: q24h Status: Active Protocol: Activity Type Activity Date Activity User E-Sign Co-Sign Detail Recorded Client Recorded Date Recorded By Document 10/12/17 12:10 [facility] [place] [id number] 10/12/17 12:25 [facility] [place] 10/12/17 12:10 Orthostatic Vitals Standing -Extremity Use Right Arm -Pulse Rate (60-100) 79 Sitting -Blood Pressure (90/60-120/80) 127/51 H -Extremity Use Right Arm -Pulse Rate (60-100) 70 Lying -Blood Pressure (90/60-120/80) 139/77 H -Extremity Use Right Arm -Pulse Rate (60-100) 71 Intake and Output for Last 24 Hours 10/10/17 10/11/17 10/12/17 23:59 23:59 23:59 Intake Total 390 / 390 170 / 170 Output Total 0 / 0 Balance 390 / 390 170 / 170 Laboratory Tests Past 24 Hrs 10/11/17 10/12/17 16:00 04:40 Sodium 139 Potassium 3.8 Chloride 101 Carbon Dioxide 31.0 Anion Gap 7 BUN 23 H Creatinine 3.73 H Estim Creat Clear Calc 10.94 Est GFR (MDRD) Af Amer 15 L Est GFR (MDRD) Non-Af 13 L BUN/Creatinine Ratio 6.2 L Glucose 109 H Calcium 8.7 Troponin I 0.049 H POC Glucose 10/12/17 10/12/17 10/11/17 11:30 06:40 22:37 POC Glucose 102 113 H 144 H Assessment/Plan Patient seen and examined independently. Data reviewed. I agree with the above note by the physician health information assistant. 1. chest pain. * Marginal elevation in troponins to 0.049. * Plan is for chemical nuclear stress test performed on October 13. Based on those results, patient will be discharged or have cardiology on consultation. 2. End-stage renal disease: Consultation to nephrology for dialysis. Patient will be due for dialysis on the fourth. If patient does require a heart catheterization that also need to be coordinated with that as well. Code Visit OBSV E&M: 60506 Subsequent observation care L2
--- NOTE | 2017-10-12 15:28 | NURSING ---
Grand daughter did not come in last night. RN called [facility] pharmacy to obtain updated med list. Med rec done. Pharmacist unsure of OTC medications otherwise list is up to date.
[2017-10-12 16:16] LABS: Bedside Glucose 131 mg/dL (70-110)
[2017-10-12] MEDS: Atorvastatin Calcium 80 MG Tablet PO (21:42)
[2017-10-12] MEDS: 0.9% NaCl Peripheral Flush Adult/Peds IV (21:43)
[2017-10-12 22:11] LABS: Bedside Glucose 144 mg/dL (70-110)
--- NOTE | 2017-10-12 23:26 | DT_ITS ---
This patient was seen during an EMR downtime October 13, 2017 - October 20, 2017. This patient may have a combination of paper and electronic documentation or all paper documentation. All documentation is viewable within the e-chart portion of [employer] for each patient visit.
--- NOTE | 2017-10-13 05:55 | EKG12_ITS ---
Test Reason : AM EKG Blood Pressure : / mmHG Vent. Rate : 078 BPM Atrial Rate : 078 BPM P-R Int : 172 ms QRS Dur : 086 ms QT Int : 426 ms P-R-T Axes : 033 015 070 degrees QTc Int : 485 ms Normal sinus rhythm Septal infarct , age undetermined Abnormal ECG Confirmed by SENA ARIAS, DONA ([id number]), primer expeditor and drier ERMELINDA BYRD ([id number] on 10/24/2017 2:16:11 PM Referred By: GARCIA Confirmed By:DONA SHETTY MD
--- NOTE | 2017-10-13 15:40 | RAD_ITS ---
STUDY: X-RAY - RIGHT KNEE REASON FOR EXAM: Female, 72 years old. Pain after trauma TECHNIQUE: 4 view(s) of the knee. COMPARISON: 12/29/2016 FINDINGS: There is demineralization of the visualized distal femur. There is demineralization of the tibia and fibula. Normal proximal tibiofibular articulation. There is severe degenerative arthrosis of the medial femorotibial compartment with severe joint space narrowing. There is mild degenerative arthrosis of the lateral femorotibial compartment. There is severe degenerative arthrosis of the patellofemoral articulation. There is a small suprapatellar effusion along with prominent spurs in the distal femur, posterior patella, and proximal tibia. There are atherosclerotic calcifications. RAD/Knee 4 or More Views IMPRESSION: Significant degenerative arthrosis, no demonstrated fracture. Small suprapatellar effusion Dense atherosclerotic calcifications Electronically Signed: Gene Jimenez MD at 8:46 EDT , Service support ,
--- NOTE | 2017-10-14 12:18 | EKG12_ITS ---
Test Reason : CP Blood Pressure : / mmHG Vent. Rate : 081 BPM Atrial Rate : 081 BPM P-R Int : 176 ms QRS Dur : 094 ms QT Int : 446 ms P-R-T Axes : 033 -06 055 degrees QTc Int : 518 ms Normal sinus rhythm Septal infarct , age undetermined Prolonged QT Abnormal ECG Confirmed by SENA ARIAS, DONA ([id number]), features editor ERMELINDA BYRD ([id number] on 10/24/2017 2:17:15 PM Referred By: ANGELICA Confirmed By:DONA SHETTY MD
[2017-10-16 16:20] LABS: Absolute Lymphocyte Count 1.97 X10^3/ul (0.83-4.51); Absolute Neutrophil Count 3.7 X10^3/uL (2.0-7.7); Basophil# 0.03 X10^3/uL; Basophil% 0.4 % (0-1); Eosinophil# 0.66 X10^3/uL; Eosinophils% 9.6 % (0-5); Hemoglobin 10.2 g/dl (12.0-15.0); Lymphocyte # 1.97 X10^3/ul (4.0); Lymphocyte % 28.7 % (19-41); Mean Corp Hgb Conc 31.9 g/gl (32-36); Mean Corpuscular Hgb 32.5 pg (27.0-32.0); Mean Corpuscular Volume 101.9 fL (81-99); Mean Platelet Vol. 9.7 fl (6.2-12.0); Monocyte# 0.47 X10^3/uL; Monocyte% 6.8 % (0-10); Neutrophil # 3.74 X10^3/uL (2.7-7.7); Neutrophil % 54.5 % (47-70); POSITIVE COUNT NO; POSITIVE DIFFERENTIAL NO; POSITIVE MORPHOLOGY NO; Platelet Count 265 K/mm3 (150-450); RBC Distribution Width CV 15.2 % (11.6-14.6); RBC Distribution Width SD 55.5 fl (35.1-43.9); Red Blood Count 3.14 M/mm3 (4.2-5.4); White Blood Count 6.9 K/mm3 (4.4-11.0)
[2017-10-16 17:50] LABS: International Normalized Ratio 1.1; Partial Thromboplast Time 31.3 Seconds (24.1-36.2); Prothrombin Time (Protime)PT. 14.1 SECONDS (11.7-14.9)
[2017-10-17 11:29] LABS: Hematocrit 31.4 % (37-47); Hemoglobin 10.2 g/dl (12.0-15.0); Mean Corp Hgb Conc 32.5 g/gl (32-36); Mean Corpuscular Hgb 32.4 pg (27.0-32.0); Mean Corpuscular Volume 99.7 fL (81-99); Mean Platelet Vol. 9.4 fl (6.2-12.0); Platelet Count 271 K/mm3 (150-450); RBC Distribution Width CV 14.8 % (11.6-14.6); Red Blood Count 3.15 M/mm3 (4.2-5.4); Scan Indicated on CBC? Y/N NO; White Blood Count 6.5 K/mm3 (4.4-11.0)
[2017-10-18 11:00] LABS: Anion Gap 7 (5-15); BUN 20 mg/dL (7-18); BUN/Creat Ratio 7.2 RATIO (10-20); Calcium,Total 8.9 mg/dL (8.5-10.1); Chloride 102 mmol/L (98-107); Creatinine, Serum 2.76 mg/dL (0.55-1.02); EST Glomerular Filtration Rate 18 mL/min (>60); Est Glom Filt Rate - Afr Amer 22 mL/min (>60); Estimated Creatinine Clearance 14.79 ml/min; Glucose 108 mg/dL (74-106); Sodium Level 139 mmol/L (136-145)
[2017-10-22 14:55] LABS: Anion Gap 9 (5-15); BUN 34 mg/dL (7-18); Calcium,Total 8.8 mg/dL (8.5-10.1); Chloride 101 mmol/L (98-107); Creatinine, Serum 4.83 mg/dL (0.55-1.02); EST Glomerular Filtration Rate 9 mL/min (>60); Est Glom Filt Rate - Afr Amer 11 mL/min (>60); Estimated Creatinine Clearance 8.45 ml/min; Glucose 158 mg/dL (74-106); Potassium 4.1 mmol/L (3.5-5.1); Sodium Level 142 mmol/L (136-145)
[2017-10-24 09:43] LABS: Bedside Glucose 125 mg/dL (70-110)
[2017-10-24 09:45] LABS: Bedside Glucose 169 mg/dL (70-110)
[2017-10-24 09:47] LABS: Bedside Glucose 136 mg/dL (70-110)
[2017-10-24 09:51] LABS: Bedside Glucose 177 mg/dL (70-110)
== END 2017-10-14 16:40 | disposition home health service (06) | DRG 313 ==
LOC: ED 11:07 → PCU 12:13
PROVIDERS: Family Medicine; Physician Assistant; Emergency Provider Emergency Medicine; Family Provider Family Medicine; PCP Family Medicine
DX: R07.89 Other chest pain (principal); N18.6 End stage renal disease; I13.2 Hypertensive heart and chronic kidney disease with heart failure and with stage 5 chronic kidney disease, or end stage renal disease; F41.9 Anxiety disorder, unspecified; E78.5 Hyperlipidemia, unspecified; I25.10 Atherosclerotic heart disease of native coronary artery without angina pectoris; Z95.5 Presence of coronary angioplasty implant and graft; E11.22 Type 2 diabetes mellitus with diabetic chronic kidney disease; I50.9 Heart failure, unspecified; D63.1 Anemia in chronic kidney disease; J45.909 Unspecified asthma, uncomplicated; M17.11 Unilateral primary osteoarthritis, right knee; I95.1 Orthostatic hypotension; F32.9 Major depressive disorder, single episode, unspecified; Z99.2 Dependence on renal dialysis
CPT/HCPCS: 36415; 71045; 73564; 80048; 80076; 82962; 83036; 83690; 84484; 85025; 85027; 85610; 85730; 90937; 92507; 92526; 93005; 94640; 99285; J7030; A4216; G0257; J2405

== ENCOUNTER 2017-10-29 16:29 | Inpatient (IN) | payer MEDICARE, SELFPAY ==
[2017-10-29 16:31] VITALS: BP 154/69; PULSE 79; RESP 16; TEMP 36; O2SAT 98; BMI 26.5
[2017-10-29 17:24] VITALS: BP 156/67; PULSE 80; RESP 16; O2SAT 100
--- NOTE | 2017-10-29 17:29 | EKG12_ITS ---
Test Reason : SYNCOPE Blood Pressure : / mmHG Vent. Rate : 077 BPM Atrial Rate : 077 BPM P-R Int : 152 ms QRS Dur : 084 ms QT Int : 430 ms P-R-T Axes : 053 025 072 degrees QTc Int : 486 ms Normal sinus rhythm Septal infarct (cited on or before 04-JUL-2014) Abnormal ECG Confirmed by BENY JOHNSTON ([id number]), sound editor ROLY DALE ([id number]) on 11/03/2017 10:38:22 AM Referred By: Thad Meyer Confirmed By:BENY JOHNSTON
--- NOTE | 2017-10-29 17:29 | RAD_ITS ---
STUDY: X-RAY CHEST REASON FOR EXAM: Female, 72 years old. Confusion and dizziness. TECHNIQUE: Single AP portable view of the chest. COMPARISON: 10/11/2017. FINDINGS: The lungs are clear and expanded. There is no demonstrated pleural abnormality. Normal size heart. Normal mediastinum and lynn. Normal visualized pulmonary arteries. Normal visualized aortic arch and descending thoracic aorta. Normal visualized thoracic spine. Normal visualized ribs, clavicles, and shoulders. There is no demonstrated abnormality of the visualized soft tissue structures of the upper abdomen. RAD/Chest 1 View (Portable) IMPRESSION: Normal x-ray examination of the chest. Electronically Signed: Nelson Gibbons MD at 18:10 EDT , Service support ,
--- NOTE | 2017-10-29 17:29 | CT_ITS ---
STUDY: CT BRAIN WITHOUT CONTRAST REASON FOR EXAM: Female, 72 years old. Mental status changes. RADIATION DOSAGE (If Supplied By Facility): CTDIvol = ( 44.99 ) mGy, DLP = ( 745.49 ) mGycm TECHNIQUE: Transaxial CT imaging of the brain was performed without administration of intravenous contrast material. Individualized dose optimization techniques were used for this CT. COMPARISON: 12/02/2016. FINDINGS: Normal soft tissue structures. Normal calvarium. There is mild cerebral atrophy with widening of the extra-axial spaces and ventricular dilatation. There are areas of decreased attenuation within the white matter tracts of the supratentorial brain, consistent with microvascular disease changes. Normal basal ganglia and thalami. Normal brainstem. There is mild cerebellar atrophy. There is no intracranial hemorrhage. There are no findings of an acute ischemic infarction. Normal visualized paranasal sinuses. CT/Brain/Head without Contrast IMPRESSION: Chronic involutional changes of the brain. No change and no acute abnormality. Electronically Signed: Nelson Gibbons MD at 18:29 EDT , Service support ,
--- NOTE | 2017-10-29 17:38 | ED.VISSUMM ---
- ER Visit Summary Date of Service: 10/29/17 Chief Complaint: Confusion History of Present Illness: The patient is a 72 F history of dementia, type II diet-controlled diabetes, hypertension, CHF, end-stage renal disease for which she is dialyzed her last dialysis Friday she skipped today. She is a history of anemia CAD with cardiac stents ?2 on Plavix and aspirin. According to her granddaughter is with her and her power of contracts attorney she had acute confusion started 2 hours ago. Denies any falls or head trauma. No trouble moving arms or legs. No slurred speech. Physical Examination: Elderly female. Vital signs are stable afebrile. Pulse ox 90% on room air no signs of hypoxia. She is in no distress. H EENT exam pupils round reactive light. Motions are intact. Normal speech. No facial droop. No signs of trauma to her face or scalp. Neck nontender no meningismus. No lymphadenopathy. Lungs clear to auscultation bilaterally. Heart regular rate and rhythm no murmur. Abdomen soft nontender. She is moving all 4 extremities. They are neurovascularly intact. Nontender. Back nontender. Neurologically she is awake she is alert she follows commands. She has normal motor strength. She has normal sensation. However she is confused she does not know day month or year. She has no slurred speech or facial droop. At worst her NIH is 1 due to the confusion. But she has no motor or sensory deficits. Test Results: CBC normal. BMP unremarkable other than a creatinine of 4.7 consistent with her chronic renal failure. UA normal. EKG sinus rhythm rate 77 no acute abnormality. Chest x-ray no acute abnormality read both by myself the radiologist and CT of the brain no acute abnormality with chronic changes read by the radiologist and reviewed by me. Emergency Department Course and Treatment: Elderly female with dementia but acute and much worse than baseline confusion. Treatment Plan: Shreyas exam at 2020 patient doing well there has been no change she still is confused. She is complaining of a mild headache will be given Tylenol. Disposition: Admiission Impression: Acute confusion of uncertain etiology. History of end-stage renal disease with dialysis History of jbe-dwnlkvt-vrughcxzw diabetes, CAD with cardiac stents This note was generated with Communication Intelligenceation software. It may contain incorrect words, spelling, and punctuation that were not noted in review of the chart prior to signing ED Disposition - Plan for ED Patient: Chief Complaint: Syncope Referrals: Thad Brandt MD [Primary Care Provider] -
--- NOTE | 2017-10-29 17:41 | ED.DCSUM_ITS ---
- ER Visit Summary Date of Service: 10/29/17 Chief Complaint: Confusion History of Present Illness: The patient is a 72 F history of dementia, type II diet-controlled diabetes, hypertension, CHF, end-stage renal disease for which she is dialyzed her last dialysis Friday she skipped today. She is a history of anemia CAD with cardiac stents ?2 on Plavix and aspirin. According to her granddaughter is with her and her power of environmental attorney she had acute confusion started 2 hours ago. Denies any falls or head trauma. No trouble moving arms or legs. No slurred speech. Physical Examination: Elderly female. Vital signs are stable afebrile. Pulse ox 90% on room air no signs of hypoxia. She is in no distress. H EENT exam pupils round reactive light. Motions are intact. Normal speech. No facial droop. No signs of trauma to her face or scalp. Neck nontender no meningismus. No lymphadenopathy. Lungs clear to auscultation bilaterally. Heart regular rate and rhythm no murmur. Abdomen soft nontender. She is moving all 4 extremities. They are neurovascularly intact. Nontender. Back nontender. Neurologically she is awake she is alert she follows commands. She has normal motor strength. She has normal sensation. However she is confused she does not know day month or year. She has no slurred speech or facial droop. At worst her NIH is 1 due to the confusion. But she has no motor or sensory deficits. Test Results: CBC normal. BMP unremarkable other than a creatinine of 4.7 consistent with her chronic renal failure. UA normal. EKG sinus rhythm rate 77 no acute abnormality. Chest x-ray no acute abnormality read both by myself the radiologist and CT of the brain no acute abnormality with chronic changes read by the radiologist and reviewed by me. Emergency Department Course and Treatment: Elderly female with dementia but acute and much worse than baseline confusion. Treatment Plan: Shreyas exam at 2020 patient doing well there has been no change she still is confused. She is complaining of a mild headache will be given Tylenol. Disposition: Admiission Impression: Acute confusion of uncertain etiology. History of end-stage renal disease with dialysis History of ilg-lrofrow-vymdzfigk diabetes, CAD with cardiac stents This note was generated with [employer]ge[employer]ation software. It may contain incorrect words, spelling, and punctuation that were not noted in review of the chart prior to signing ED Disposition - Plan for ED Patient: Chief Complaint: Syncope Referrals: Thad Brandt MD [Primary Care Provider] -
[2017-10-29 18:23] LABS: Anion Gap 7 (5-15); BUN 27 mg/dL (7-18); BUN/Creat Ratio 5.7 RATIO (10-20); Calcium,Total 8.7 mg/dL (8.5-10.1); Chloride 103 mmol/L (98-107); EST Glomerular Filtration Rate 10 mL/min (>60); Est Glom Filt Rate - Afr Amer 12 mL/min (>60); Estimated Creatinine Clearance 9.08 ml/min; Glucose 148 mg/dL (74-106); Potassium 3.6 mmol/L (3.5-5.1); Sodium Level 139 mmol/L (136-145)
[2017-10-29 18:24] LABS: Absolute Lymphocyte Count 1.76 X10^3/ul (0.83-4.51); Absolute Neutrophil Count 5.5 X10^3/uL (2.0-7.7); Basophil# 0.02 X10^3/uL; Basophil% 0.2 % (0-1); Eosinophil# 0.48 X10^3/uL; Eosinophils% 5.8 % (0-5); Hematocrit 25.8 % (37-47); Hemoglobin 8.2 g/dl (12.0-15.0); Lymphocyte # 1.76 X10^3/ul (4.0); Lymphocyte % 21.3 % (19-41); Mean Corp Hgb Conc 31.8 g/gl (32-36); Mean Corpuscular Hgb 32.3 pg (27.0-32.0); Mean Corpuscular Volume 101.6 fL (81-99); Mean Platelet Vol. 9.4 fl (6.2-12.0); Monocyte# 0.47 X10^3/uL; Monocyte% 5.7 % (0-10); Neutrophil # 5.52 X10^3/uL (2.7-7.7); Neutrophil % 66.8 % (47-70); POSITIVE COUNT NO; POSITIVE DIFFERENTIAL NO; POSITIVE MORPHOLOGY NO; Platelet Count 281 K/mm3 (150-450); RBC Distribution Width CV 15.7 % (11.6-14.6); RBC Distribution Width SD 55.1 fl (35.1-43.9); Red Blood Count 2.54 M/mm3 (4.2-5.4); White Blood Count 8.3 K/mm3 (4.4-11.0)
[2017-10-29 18:25] VITALS: BMI 26.6
[2017-10-29 18:53] LABS: Bacteria 0 SEEN /hpf (None Seen); Mucous, Urine 0 SEEN /hpf (<or=2+); Red Blood Cells-Urine 0 SEEN /hpf (0-5); White Blood Cells 0 SEEN /hpf (0-5)
[2017-10-29 18:59] LABS: Color, Urine Yellow (Yellow); Glucose, Dipstick Normal (Normal); Ketone-Dipstick Negative (Negative); Leukocyte Esterase-Dipstick Negative /ul (Negative); Nitrite-Dipstick Negative (Negative); Occult Blood-Urine Negative /ul (Negative); Protein-Dipstick 30 mg/dl (Negative); Urine Bilirubin Dipstick Negative (Negative); Urine Clarity Clear (Clear); Urine Urobilinogen Normal (Normal)
[2017-10-29 19:09] LABS: Squamous Epithelial Cells - UA 0-5 SEEN /hpf (5-10)
[2017-10-29 20:45] VITALS: BP 154/60; PULSE 78; RESP 20; O2SAT 99
[2017-10-29 20:46] VITALS: BP 154/60; PULSE 78; RESP 20; O2SAT 99
--- NOTE | 2017-10-29 20:46 | PCM.HP.STD ---
Problem List (1) Altered mental status, unspecified Status: Acute (2) Anemia of chronic disease Status: Chronic (3) Asthma Status: Chronic (4) Benign hypertension Status: Chronic (5) CKD (chronic kidney disease), stage II Status: Chronic (6) Cervicogenic headache Status: Chronic (7) Congestive heart failure Status: Chronic (8) Coronary artery disease Status: Chronic Comment: Status post stent (9) ESRD (end stage renal disease) Status: Chronic (10) RTA (renal tubular acidosis) Status: Chronic Comment: Type 4 (11) Type II diabetes mellitus Status: Chronic (12) Chest pressure Status: Resolved (13) Confusion Status: Resolved (14) Healthcare-associated pneumonia Status: Resolved (15) UTI (urinary tract infection) Status: Resolved History of Present Illness Date of Admission: 10/29/17 Chief Complaint: Altered mental status The patient is a 72 year old F with multiple comorbidities including dementia, coronary artery disease status post stent, CHF, ESRD on HD, diabetes type 2, asthma, obesity, was brought into ER for altered mental status. When I saw the patient, there was no relative near the bedside patient was brought by granddaughter who is her power of civil litigation attorney as per the ER physician. She is confused for about 2 hours. [] Patient said she is having headache mainly in the frontal region, had nausea. She also complained of intermittent nocturia and chronic diarrhea. She denies fever or chills, cough, shortness of breath, abdominal pain. In ED, she had CT head which did not show acute change. Chest x-ray does not show any acute change. Patient has creatinine 4.7 consistent with ESRD on hemodialysis. UA normal. EKG shows normal sinus rhythm at 77 bpm Past Medical History Past Medical History (Chronic Problems): Chronic Problems ESRD (end stage renal disease) (Chronic) Coronary artery disease (Chronic) Status post stent RTA (renal tubular acidosis) (Chronic) Type 4 Type II diabetes mellitus (Chronic) CKD (chronic kidney disease), stage II (Chronic) Cervicogenic headache (Chronic) Asthma (Chronic) Anemia of chronic disease (Chronic) Congestive heart failure (Chronic) Benign hypertension (Chronic) Allergies donepezil [From Aricept] Adverse Reaction (Verified 10/29/17 16:30) dizzy Home Medications: Ambulatory Orders Medication Instructions Recorded Albuterol IH (ProAir) [Proair Hfa] 2 puff INHALATION Q4H PRN PRN 07/04/14 Atorvastatin Calcium [Lipitor] 80 mg PO QHS 07/04/14 Carvedilol [Coreg (Beta Lela)] 12.5 mg PO BID 07/04/14 Clopidogrel Bisulfate [Plavix] 75 mg PO DAILY 07/04/14 Furosemide [Lasix] 80 mg PO DAILY 07/04/14 Sertraline HCl [Zoloft] 100 mg PO DAILY 07/04/14 Aspirin E.C. [Ecotrin] 81 mg PO DAILY@0800 07/08/16 Ipratropium/Albuterol Sulfate 3 ml INHALATION Q6H.RT 07/29/16 [Duoneb] Nitroglycerin [Nitrostat] 0.4 mg SL PRN PRN 07/29/16 Fluticasone/Salmeterol [Advair 1 each IH BID 12/01/16 250-50 Diskus] hydrOXYzine pamoate capsule 25 mg PO BID PRN PRN 12/01/16 [Vistaril pamoate capsule] Acetaminophen [Tylenol Tablet] 650 mg PO Q4H PRN PRN tablet 12/03/16 Isosorbide DN [Isordil] 20 mg PO BID 10/11/17 Ondansetron HCl [Zofran] 1 tab PO BID PRN PRN 10/11/17 Bupropion HCl [Bupropion Xl] 300 mg PO DAILY 10/12/17 Pantoprazole Sodium [Protonix] 40 mg PO DAILY 10/29/17 Surgical History: appendectomy, cholecystectomy Psychiatric History: No pertinent psych hx MANUAL ARTS THERAPIST History: No pertinent MANUAL ARTS THERAPIST history Smoking Status: Never smoker Tobacco Use: Non-smoker - *Family History Maternal History Items: Heart Disease Paternal History Items: Cancer, Heart Disease Review of Systems Constitutional: Reports: Weakness. Denies: Chills, Fever, Weight Change HEENT: Reports: Head Aches. Denies: Sinus Congestion, Sinus Drainage Cardiovascular: Denies: Chest Pain, Palpitations Respiratory: Denies: Cough, Shortness of breath at rest, Sputum production Gastrointestinal: Reports: Diarrhea - Chronic diarrhea, Nausea. Denies: Abdominal Pain, Vomiting Genitourinary: Reports: Frequency, Nocturia. Denies: Dysuria Musculoskeletal: Reports: Joint Pain, Joint Tenderness, Muscle pain Skin: Denies: Rash, Wounds Neurological: Denies: Numbness, Tingling, Focal weakness Psychiatric: Reports: Anxiety, Depression. Denies: Homicidal Ideations, Suicidal Ideations Hematologic/ Lymphatic: Denies: Easy Bruising, Easy Bleeding VTE Information - Inpt Only VTE Present on Admission: No VTE Mechan Device Prophylaxis: SCD's VTE Pharm Prophylaxis ordered?: Yes Patient Problems: Active and Suspected Problems Altered mental status, unspecified (Acute) - Physical Exam General: Confused, Disoriented, Lethargic HEENT: Atraumatic, PERRLA, EOMI, Normocephalic, - - Photophobia Neck: Supple, No JVD, Negative Carotid Bruits Lungs: Clear to auscultation, No rhonchi, No wheeze, No rales, Diminished Cardiovascular: Regular rate, Normal S1, Normal S2, No murmurs Abdomen: Bowel Sounds Present, Soft, Non Tender, Non-Distended Extremities: Capillary Refill Less than 3 Seconds, Edema Skin: No rashes, No breakdown Musculoskeletal: Arthritic Changes, Tenderness Neurological: Cranial nerves II-XII grossly intact, - - Confused and disoriented, neuro exam nonfocal Psych/Mental Status: Anxious Vital Signs Temp Pulse Resp BP Pulse Ox 96.8 F L 78 20 H 154/60 H 99 10/29/17 16:31 10/29/17 20:45 10/29/17 20:45 10/29/17 20:45 10/29/17 20:45 Oxygen Delivery Method Room Air Weight: 150 lb Body Mass Index (BMI) 26.5 Finger Stick Blood Glucose 187 Laboratory Tests Past 24 Hrs 10/29/17 10/29/17 10/29/17 17:55 17:55 18:50 WBC 8.3 RBC 2.54 L Hgb 8.2 L Hct 25.8 L MCV 101.6 H MCH 32.3 H MCHC 31.8 L RDW 15.7 H RDW Differential 55.1 H Plt Count 281 MPV 9.4 Immature Gran % (Auto) 0.200 Neut % (Auto) 66.8 Lymph % (Auto) 21.3 [place] % (Auto) 5.7 Eos % (Auto) 5.8 H Baso % (Auto) 0.2 Absolute Neuts (auto) 5.5 Absolute Lymphs (auto) 1.76 Total Counted Not Reportable Sodium 139 Potassium 3.6 Chloride 103 Carbon Dioxide 29.0 Anion Gap 7 BUN 27 H Creatinine 4.70 H Estim Creat Clear Calc 9.08 Est GFR (MDRD) Af Amer 12 L Est GFR (MDRD) Non-Af 10 L BUN/Creatinine Ratio 5.7 L Glucose 148 H Calcium 8.7 Troponin I 0.021 Urine Color Yellow Urine Clarity Clear Urine pH 8.0 Ur Specific [place] 1.010 Urine Protein 30 H Urine Glucose (UA) Normal Urine Ketones Negative Urine Occult Blood Negative Urine Nitrite Negative Urine Bilirubin Negative Urine Urobilinogen Normal Ur Leukocyte Esterase Negative Urine RBC 0 SEEN Urine WBC 0 SEEN Ur Squamous Epith Cells 0-5 SEEN Urine Bacteria 0 SEEN Urine Mucus 0 SEEN Assessment/Plan All Active Problems Altered mental status, unspecified (Acute) Confusion (Resolved) UTI (urinary tract infection) (Resolved) Chest pressure (Resolved) Healthcare-associated pneumonia (Resolved) The patient is a 72 year old F with multiple comorbidities including dementia, coronary artery disease status post stent, CHF, ESRD on HD, diabetes type 2, asthma, obesity, was brought into ER for altered mental status. When I saw the patient, there was no relative near the bedside patient was brought by granddaughter who is her power of civil litigation attorney as per the ER physician. She is confused for about 2 hours. [] Patient said she is having headache mainly in the frontal region, had nausea. She also complained of intermittent nocturia and chronic diarrhea. She denies fever or chills, cough, shortness of breath, abdominal pain. In ED, she had CT head which did not show acute change. Chest x-ray does not show any acute change. Patient has creatinine 4.7 consistent with ESRD on hemodialysis. UA normal. EKG shows normal sinus rhythm at 77 bpm. 1. Altered mental status, exact etiology unclear but possible related to polypharmacy/metabolic encephalopathy/possible fluctuation of dementia: The patient is being admitted on regular MedSurg floor with telemetry patient is on Zoloft, bupropion at home which is being held. Monitor BMP and electrolytes. Magnesium ordered. 2. ESRD on hemodialysis: Previous admission in October 2017 about 3 weeks ago while she was admitted for chest pain, she requested [facility] to be seen during hospital stay. She requested Dr. RICHARDSON to see her. She is on dialysis Friday and Friday and but she was not dialyzed today. As per ED physician, she called her dialysis center and was told to come to ER. Potassium is 3.6, sodium 139, BUN 27 and creatinine 4.7. Discussed with Dr. Richardson on [facility] consult put in. 3. DMt2 -patient is not on insulin or oral hypoglycemic agents. Blood sugar is 148. Accu-Cheks before meals and at bedtime and cover with NovoLog sliding scale. A1C with good control. Other chronic comorbidities include coronary artery status post stent, hypertension, anxiety and depression and history of dysphagia possible due to esophageal stricture: Patient follows Dr. Sharp as an outpatient. DVT ppx: heparin bilateral SCDs Laboratory Results 10/29/17 17:55: WBC 8.3, RBC 2.54 L, Hgb 8.2 L, Hct 25.8 L, MCV 101.6 H, MCH 32.3 H, MCHC 31.8 L, RDW 15.7 H, RDW Differential 55.1 H, Plt Count 281, MPV 9.4, Immature Gran % (Auto) 0.200, Neut % (Auto) 66.8, Lymph % (Auto) 21.3, [place] % (Auto) 5.7, Eos % (Auto) 5.8 H, Baso % (Auto) 0.2, Absolute Neuts (auto) 5.5, Absolute Lymphs (auto) 1.76, Total Counted Not Reportable 10/29/17 17:55: Sodium 139, Potassium 3.6, Chloride 103, Carbon Dioxide 29.0, Anion Gap 7, BUN 27 H, Creatinine 4.70 H, Estim Creat Clear Calc 9.08, Est GFR (MDRD) Af Amer 12 L, Est GFR (MDRD) Non-Af 10 L, BUN/Creatinine Ratio 5.7 L, Glucose 148 H, Calcium 8.7, Troponin I 0.021 10/29/17 18:50: Urine Color Yellow, Urine Clarity Clear, Urine pH 8.0, Ur Specific [place] 1.010, Urine Protein 30 H, Urine Glucose (UA) Normal, Urine Ketones Negative, Urine Occult Blood Negative, Urine Nitrite Negative, Urine Bilirubin Negative, Urine Urobilinogen Normal, Ur Leukocyte Esterase Negative, Urine RBC 0 SEEN, Urine WBC 0 SEEN, Ur Squamous Epith Cells 0-5 SEEN, Urine Bacteria 0 SEEN, Urine Mucus 0 SEEN Clinical Impression(s) from Imaging Studies Brain CT 10/29/17 17:29 IMPRESSION: Chronic involutional changes of the brain. No change and no acute abnormality. Chest X-Ray 10/29/17 17:29 IMPRESSION: Normal x-ray examination of the chest. Code Visit Inpatient E&M: 82007 Init Hosp L3
[2017-10-29 21:11] VITALS: BMI 29.5
[2017-10-29 21:24] VITALS: BP 117/88; PULSE 75; RESP 20; TEMP 36.6; O2SAT 100
[2017-10-29] MEDS: Carvedilol 12.5 MG Tablet PO (22:45)
[2017-10-29] MEDS: Acetaminophen 325 MG Tablet 650 MG PO (22:46)
[2017-10-29] MEDS: Heparin Injection (Vial) 5,000 UNIT/ML VIAL 5000 UNIT SC (22:46)
[2017-10-29] MEDS: Atorvastatin Calcium 80 MG Tablet PO (22:46)
[2017-10-29] MEDS: 0.9% NaCl Peripheral Flush Adult/Peds IV (22:57)
[2017-10-30] VITALS (15 sets, daily range): BP systolic 128–164; BP diastolic 60–78; PULSE 73–81; RESP 16–21; TEMP 36.7–36.9; O2SAT 94–100; BMI 29.6
[2017-10-30 00:01] LABS: Bedside Glucose 92 mg/dL (70-110)
[2017-10-30 05:56] LABS: Absolute Lymphocyte Count 2.17 X10^3/ul (0.83-4.51); Absolute Neutrophil Count 4.3 X10^3/uL (2.0-7.7); Basophil# 0.03 X10^3/uL; Basophil% 0.4 % (0-1); Eosinophil# 0.61 X10^3/uL; Eosinophils% 8.1 % (0-5); Hematocrit 24.9 % (37-47); Hemoglobin 8.1 g/dl (12.0-15.0); Lymphocyte # 2.17 X10^3/ul (4.0); Lymphocyte % 28.8 % (19-41); Mean Corp Hgb Conc 32.5 g/gl (32-36); Mean Corpuscular Hgb 32.5 pg (27.0-32.0); Mean Platelet Vol. 9.2 fl (6.2-12.0); Monocyte% 5.3 % (0-10); Neutrophil % 57.1 % (47-70); Platelet Count 268 K/mm3 (150-450); RBC Distribution Width CV 15.5 % (11.6-14.6); RBC Distribution Width SD 53.5 fl (35.1-43.9); Red Blood Count 2.49 M/mm3 (4.2-5.4); White Blood Count 7.5 K/mm3 (4.4-11.0)
[2017-10-30 05:59] LABS: POSITIVE COUNT NO; POSITIVE DIFFERENTIAL NO; POSITIVE MORPHOLOGY NO
[2017-10-30] MEDS: Acetaminophen 325 MG Tablet 650 MG PO (06:02)
[2017-10-30] MEDS: Isosorbide DN 20 MG Tablet PO ×3 (06:02→17:56)
[2017-10-30 06:20] LABS: Anion Gap 10 (5-15); BUN 28 mg/dL (7-18); BUN/Creat Ratio 5.9 RATIO (10-20); Calcium,Total 8.8 mg/dL (8.5-10.1); Chloride 105 mmol/L (98-107); Creatinine, Serum 4.75 mg/dL (0.55-1.02); EST Glomerular Filtration Rate 10 mL/min (>60); Est Glom Filt Rate - Afr Amer 12 mL/min (>60); Glucose 98 mg/dL (74-106); Potassium 3.8 mmol/L (3.5-5.1); Sodium Level 141 mmol/L (136-145)
[2017-10-30 06:26] LABS: Bedside Glucose 132 mg/dL (70-110)
[2017-10-30] MEDS: Budesonide Respules 0.5 MG/2 ML AMPUL.NEB. INHALATION ×2 (07:15→19:00)
[2017-10-30] MEDS: Ipratropium/Albuterol Sulfate 3 ML AMPUL.NEB INHALATION ×3 (07:15→19:00)
[2017-10-30] MEDS: Heparin Injection (Vial) 5,000 UNIT/ML VIAL 5000 UNIT SC ×2 (10:23→21:33)
--- NOTE | 2017-10-30 10:23 | CASEMGMT ---
Addendum entered by Janet Shelton 10/30/17 10:58: SW received message from Sunitha at [facility] stating that she would like to review pt for admittance. Sunitha states that she will like to review updated clinicals including if pt's confusion decreases, any consultations and PT/OT when they become available. BHAVANI will fax updated clinicals when available. Plan: W pending acceptance Original Note: Social Work Note SW received call from pt's granddaughter Radha Mullins. Radha states that she is HCPOA for pt. Radha states that pt has increased her confusion and is unable to care for herself at home. Radha states that pt will need placement at discharge and eventually petroleum terminal plant operator placement. Radha states that pt only has Medicare insurance. BHAVANI educated Radha on Medicare guidelines and that pt will need a three midnight stay at hospital for Medicare to cover SNF and if pt doesn't get three midnights, SNF would be private pay. BHAVANI informed Radha that she may want to fill out a Medicaid Application if she is thinking petroleum terminal plant operator placement as Medicaid would cover petroleum terminal plant operator care. Radha states understanding and states that she has Medicaid Application completed and she will drop off the application to [facility]. BHAVANI educated Radha on referral process. Radha states understanding. Radha states that her first choice for placement is [facility] as she works there. BHAVANI encouraged Radha to have additional choices in the event [facility] is unable to accept. BHAVANI encouraged Radha to google facilities and visit some if she is able to. Radha states understanding. BHAVANI faxed referral to Sunitha at [facility]. BHAVANI placed a call to Sunitha and left her a message in regard to referral. BHAVANI informed Sunitha that pt is looking for skilled services initially with the possibility of retirement care. BHAVANI waiting for call back from Sunitha. Plan: [facility] for skilled services pending acceptance Janet Shelton CLINICAL BIOCHEMIST, EBAY RESELLER
[2017-10-30] MEDS: Glucerna Shake 120 ML LIQUID PO ×4 (10:24→21:32)
[2017-10-30] MEDS: Furosemide 80 MG Tablet PO (10:24)
[2017-10-30] MEDS: Pantoprazole Sodium 40 MG Tablet PO (10:24)
[2017-10-30] MEDS: Clopidogrel Bisulfate 75 MG Tablet PO (10:24)
[2017-10-30] MEDS: Carvedilol 12.5 MG Tablet PO ×2 (10:24→21:33)
[2017-10-30] MEDS: Aspirin E.C. 81 MG Tablet PO (10:24)
[2017-10-30] MEDS: Sertraline 100 MG Tablet PO (10:24)
[2017-10-30 11:10] LABS: Bedside Glucose 142 mg/dL (70-110)
--- NOTE | 2017-10-30 13:41 | CASEMGMT ---
Addendum entered by Janet Shelton 10/30/17 14:02: BHAVANI received call from Radha stating that she also spoke with Sunitha at [facility] and was informed that Sunitha is receiving referral. Radha states that Ariel Mullins who is currently listed as HCPOA is her father, pt's son. Radha states that she has paper at home that they filled out regarding HCPOA and will bring that in if she is able to locate the paperwork. Original Note: Social Work Note BHAVANI placed a call to pt's granddaughter Radha and left a message for her updating her that this worker sent a referral to [facility] earlier today and that [facility] is going to continue to look over pt to determine if they are able to accept pt. BHAVANI also informed Radha that the current Healthcare Power of Deportation Examiner (HCPOA) that this worker has on file for pt states that a Ariel Mullins is listed as pt's HCPOA and asked Radha if she had an updated HCPOA to bring it in to the hospital so [facility] can have the updated version. BHAVANI will continue to follow along to assist with discharge planning. Plan: [facility] pending acceptance Janet Shelton TEENAGE BABYSITTER, CORPORATE BUYER
--- NOTE | 2017-10-30 16:25 | CASEMGMT ---
Social Work Note SW received message from RN JACOBO Topete informing this worker that Dr. Adams had mentioned that she doesn't think pt will meet three midnight stay to qualify pt for SNF under Medicare. SW asked social field services analyst Kelli MOLINA if pt had two midnight stays a few weeks ago and then had a midnight stay during this hospitalization would those nights qualify pt for SNF. Kelli states that it would not qualify pt for coverage under Medicare. Pt needs three consecutive midnight stays in hospital to qualify for Medicare coverage for SNF. Per previous conversations with pt's granddaughter Radha, Radha had mentioned that she had completed Medicaid application and was going to submit it to [facility]. SW placed a call to Sunitha at [facility] and left her a message informing her that Dr. Adams doesn't think pt will meet three midnight stay qualification for Medcare and asked Sunitha if she would accept pending medicaid application number for pt to go to [facility] at discharge. SW waiting for call back from Sunitha. Plan: [facility] pending acceptance Janet Shelton TRAP PULLER, METER INSPECTOR
--- NOTE | 2017-10-30 16:41 | PN_ITS ---
<Janice Reynoso - Last Filed: 10/30/17 16:42> Subjective: Patient seen and examined. Confused during assessment, pleasant. Knows she is in the hospital. Unable to state month or year. States she is tired. Denies other current complaints. - Physical Exam General: Alert, Cooperative, No apparent distress, Confused HEENT: Atraumatic, PERRLA, EOMI, Normocephalic Neck: Supple, No JVD, Negative Carotid Bruits Lungs: Clear to auscultation, Normal air movement Cardiovascular: Regular rate, Regular Rhythm, Normal S1, Normal S2, No murmurs Abdomen: Bowel Sounds Present, Soft, Non Tender, Non-Distended Extremities: No clubbing, No cyanosis, No edema, Capillary Refill Less than 3 Seconds Skin: No rashes, No breakdown Musculoskeletal: No Tenderness to Palpation of Joints or Extremities Neurological: Cranial nerves II-XII grossly intact, Neuro grossly intact Psych/Mental Status: Normal Affect, Appropriate Vital Signs Temp Pulse Resp BP Pulse Ox 98.5 F 73 16 147/74 H 99 10/30/17 16:15 10/30/17 16:15 10/30/17 16:15 10/30/17 16:15 10/30/17 16:15 Oxygen Delivery Method Room Air Weight: 70.959 kg Body Mass Index (BMI) 29.5 Intake and Output for Last 24 Hours 10/28/17 10/29/17 10/30/17 23:59 23:59 23:59 Intake Total 300 / 300 Output Total 300 / 300 Balance 0 / 0 Laboratory Tests Past 24 Hrs 10/30/17 10/30/17 05:34 05:34 WBC 7.5 RBC 2.49 L Hgb 8.1 L Hct 24.9 L MCV 100.0 H MCH 32.5 H MCHC 32.5 RDW 15.5 H RDW Differential 53.5 H Plt Count 268 MPV 9.2 Immature Gran % (Auto) 0.300 Neut % (Auto) 57.1 Lymph % (Auto) 28.8 [place] % (Auto) 5.3 Eos % (Auto) 8.1 H Baso % (Auto) 0.4 Absolute Neuts (auto) 4.3 Absolute Lymphs (auto) 2.17 Total Counted Not Reportable Sodium 141 Potassium 3.8 Chloride 105 Carbon Dioxide 26.0 Anion Gap 10 BUN 28 H Creatinine 4.75 H Estim Creat Clear Calc 8.20 Est GFR (MDRD) Af Amer 12 L Est GFR (MDRD) Non-Af 10 L BUN/Creatinine Ratio 5.9 L Glucose 98 Calcium 8.8 POC Glucose 10/30/17 10/30/17 10/29/17 10:57 06:01 22:51 POC Glucose 142 H 132 H 92 Medical Necessity - Tobacco Use Smoking Status: Never smoker Tobacco Use: Non-smoker Assessment/Plan All Active Problems Altered mental status, unspecified (Acute) Confusion (Resolved) UTI (urinary tract infection) (Resolved) Chest pressure (Resolved) Healthcare-associated pneumonia (Resolved) Patient is a 72-year-old female admitted 10/29/2017 due to altered mental status. She has a past medical history of end-stage renal disease on hemodialysis, chronic diastolic CHF, coronary disease status post stent, dementia, type 2 diabetes mellitus, asthma, anemia of chronic disease, hypertension, hyperlipidemia, depression, GERD. 1. Acute encephalopathy-etiology unclear. Patient has underlying history of dementia. Granddaughter who checks on patient daily states her change in mental status was fairly sudden. CT of head showed no acute changes. Chest x- ray unremarkable. UA unremarkable. EKG without evidence of ischemia. Consult neurology. Case management consulted, family expresses need for skilled placement. PT/OT. 2. End-stage renal disease on hemodialysis- hemodialysis regimen Friday, Friday, Friday. Left arm AV fistula. Trend BMP. Follows with Dr. Kapadia. Nephrology consulted. 3. Chronic diastolic CHF-previous echocardiogram in 2014 with EF 50%, mild to moderate tricuspid valve insufficiency, mild mitral valve insufficiency. Continue home Lasix regimen. 4. Coronary artery disease status post stent-continue aspirin, statin, carvedilol, Plavix, Lasix, isosorbide. 5. Type 2 diabetes [id number] before meals at bedtime with sliding scale insulin. 6. Hypertension-stable, continue home regimen of carvedilol, Lasix, isosorbide. 7. Hyperlipidemia-continue statin. 8. Anemia of chronic disease-stable, trend CBC. 9. Asthma-albuterol aerosol as needed for shortness of breath. 10. Dementia-possible SNF at discharge. PT/OT. 11. Depression-continue home Zoloft, bupropion regimen. 12. GERD-continue PPI. 13. History of dysphagia possibly due to esophageal stricture-follows with Dr. Sharp as outpatient. ST evaluation. DVT prophylaxis-heparin subcu. Discharge planning: Case management involved, SNF pending pre-cert and further inpatient evaluation. This patient was seen by BONI Ledbetter under the supervision of Dr. Adams. <Rosaline Adams - Last Filed: 11/05/17 08:03> - Physical Exam Vital Signs Temp Pulse Resp BP Pulse Ox 97.8 F 73 18 122/45 H 100 11/01/17 09:54 11/01/17 10:00 11/01/17 09:54 11/01/17 09:54 11/01/17 09:54 Oxygen Delivery Method Room Air Weight: 156 lb 7.005 oz Body Mass Index (BMI) 29.5 Code Visit Inpatient E&M: 30731 Subs Hosp L2
--- NOTE | 2017-10-30 16:51 | PCM.CONS.R ---
Problem List (1) ESRD (end stage renal disease) Status: Chronic Consultation - Renal 10/30/17 PCP/ Referring MD: Requesting physician: Dr Kohler Primary care physician: Thad Brandt MD Reason for Consultation:: ESRD - History of Present Illness History of Present Illness: The patient is a 72 year old F ESRD on HD MWF schedule. Admitted with AMS. no focal symptoms. currently feels ok no mental status changes. no signs of infection so far - Allergies Allergies: Allergies donepezil [From Aricept] Adverse Reaction (Verified 10/29/17 16:30) dizzy - Current Medications Current Medications: Current Medications Acetaminophen (Tylenol) 650 mg PO Q4H PRN PRN PRN Reason: PAIN Last Admin: 10/30/17 06:02 Dose: 650 mg Al Hydroxide/Mg Hydroxide (Mylanta Ii) 30 ml PO Q6H PRN PRN PRN Reason: Gastric burning Albuterol/Ipratropium (Duoneb) 3 ml INHALATION Q6H.RT [facility] Last Admin: 10/30/17 13:12 Dose: 3 ml Aspirin (Ecotrin) 81 mg PO DAILY@0800 [facility] Last Admin: 10/30/17 10:24 Dose: 81 mg Atorvastatin Calcium (Lipitor) 80 mg PO QHS [facility] Last Admin: 10/29/17 22:46 Dose: 80 mg Budesonide (Pulmicort Aerosol) 0.5 mg INHALATION Q12H.RT [facility] Last Admin: 10/30/17 07:15 Dose: 0.5 mg Bupropion HCl (Wellbutrin Xl) 300 mg PO DAILY [facility] Carvedilol (Coreg) 12.5 mg PO BID [facility] Last Admin: 10/30/17 10:24 Dose: 12.5 mg Clopidogrel Bisulfate (Plavix) 75 mg PO DAILY [facility] Last Admin: 10/30/17 10:24 Dose: 75 mg Dextrose (D50w Syringe) 0 gm IV X1 PRN; Protocol PRN Reason: Hypoglycemia Furosemide (Lasix) 80 mg PO DAILY [facility] Last Admin: 10/30/17 10:24 Dose: 80 mg Glucagon () 1 mg IM .X1 PRN PRN Reason: Hypoglycemia Heparin Sodium (Porcine) (Heparin Na) 5,000 unit SC Q12 [facility] Last Admin: 10/30/17 10:23 Dose: 5,000 u Insulin Human Lispro (Humalog Kwikpen (Bkc)) 0 unit SQ ACHS [facility] PRN Reason: Protocol Last Admin: 10/30/17 12:16 Dose: Not Given Isosorbide Dinitrate (Isordil) 20 mg PO 0600,1200,1800 [facility] Last Admin: 10/30/17 12:56 Dose: 20 mg Nitroglycerin (Nitrostat) 0.4 mg SUBLINGUAL PRN PRN PRN Reason: CARDIAC/CHEST PAIN Nutritional Formula (Lactose Free) (Glucerna Shake) 120 ml PO 4X/DAY [facility] Last Admin: 10/30/17 12:57 Dose: 120 ml Ondansetron HCl (Zofran) 4 mg IV Q6H PRN PRN PRN Reason: NAUSEA Pantoprazole Sodium (Protonix) 40 mg PO DAILY [facility] Last Admin: 10/30/17 10:24 Dose: 40 mg Promethazine HCl (Phenergan) 12.5 mg IV Q6H PRN PRN PRN Reason: NAUSEA/VOMITING Sertraline HCl (Zoloft) 100 mg PO DAILY [facility] Last Admin: 10/30/17 10:24 Dose: 100 mg Sodium Chloride () 5 - 30 ml IV UD PRN PRN Reason: SALINE FLUSH Last Admin: 10/29/17 22:57 Dose: 10 ml Zolpidem Tartrate (Ambien (Generic)) 5 mg PO QHS PRN PRN PRN Reason: INSOMNIA - Past Medical History Past Medical History (Chronic Problems): Chronic Problems ESRD (end stage renal disease) (Chronic) Coronary artery disease (Chronic) Status post stent RTA (renal tubular acidosis) (Chronic) Type 4 Type II diabetes mellitus (Chronic) CKD (chronic kidney disease), stage II (Chronic) Cervicogenic headache (Chronic) Asthma (Chronic) Anemia of chronic disease (Chronic) Congestive heart failure (Chronic) Benign hypertension (Chronic) - Past Surgical History Surgical History: appendectomy, cholecystectomy - Social History Smoking Status: Never smoker - Family History Maternal History Items: Heart Disease Paternal History Items: Cancer, Heart Disease Review of Systems Constitutional: Denies: Chills, Fever, Weight Change HEENT: Denies: Head Aches, Sinus Congestion, Sinus Drainage Cardiovascular: Denies: Chest Pain, Palpitations Respiratory: Denies: Cough, Shortness of breath at rest, Sputum production Gastrointestinal: Denies: Abdominal Pain, Nausea, Vomiting Genitourinary: Denies: Dysuria Musculoskeletal: Denies: Joint Pain, Joint Tenderness Skin: Denies: Rash, Wounds Neurological: Denies: Numbness, Tingling, Focal weakness Psychiatric: Denies: Anxiety, Depression, Homicidal Ideations, Suicidal Ideations Hematologic/ Lymphatic: Denies: Easy Bruising, Easy Bleeding Patient Problems: Active and Suspected Problems Altered mental status, unspecified (Acute) - Physical Exam General: Alert, Oriented x3, Cooperative HEENT: Atraumatic, PERRLA, EOMI, Normocephalic Neck: Supple, No JVD, Negative Carotid Bruits Lungs: Clear to auscultation, Normal air movement Cardiovascular: Regular rate, No murmurs Abdomen: Bowel Sounds Present, Soft, Non Tender Extremities: No edema, Capillary Refill Less than 3 Seconds Skin: No rashes, No breakdown Musculoskeletal: No Tenderness to Palpation of Joints or Extremities Neurological: Cranial nerves II-XII grossly intact Psych/Mental Status: Normal Affect, Appropriate Vital Signs Temp Pulse Resp BP Pulse Ox 98.5 F 73 16 147/74 H 99 10/30/17 16:15 10/30/17 16:15 10/30/17 16:15 10/30/17 16:15 10/30/17 16:15 Oxygen Delivery Method Room Air Weight: 70.959 kg Body Mass Index (BMI) 29.5 Intake and Output for Last 24 Hours 10/28/17 10/29/17 10/30/17 23:59 23:59 23:59 Intake Total 300 / 300 Output Total 300 / 300 Balance 0 / 0 Laboratory Tests Past 24 Hrs 10/30/17 10/30/17 05:34 05:34 WBC 7.5 RBC 2.49 L Hgb 8.1 L Hct 24.9 L MCV 100.0 H MCH 32.5 H MCHC 32.5 RDW 15.5 H RDW Differential 53.5 H Plt Count 268 MPV 9.2 Immature Gran % (Auto) 0.300 Neut % (Auto) 57.1 Lymph % (Auto) 28.8 [place] % (Auto) 5.3 Eos % (Auto) 8.1 H Baso % (Auto) 0.4 Absolute Neuts (auto) 4.3 Absolute Lymphs (auto) 2.17 Total Counted Not Reportable Sodium 141 Potassium 3.8 Chloride 105 Carbon Dioxide 26.0 Anion Gap 10 BUN 28 H Creatinine 4.75 H Estim Creat Clear Calc 8.20 Est GFR (MDRD) Af Amer 12 L Est GFR (MDRD) Non-Af 10 L BUN/Creatinine Ratio 5.9 L Glucose 98 Calcium 8.8 POC Glucose 10/30/17 10/30/17 10/29/17 10:57 06:01 22:51 POC Glucose 142 H 132 H 92 Assessment/Plan All Active Problems Altered mental status, unspecified (Acute) Confusion (Resolved) UTI (urinary tract infection) (Resolved) Chest pressure (Resolved) Healthcare-associated pneumonia (Resolved) ESRD. HD MWF schedule. seen on dialysis today. no complaints. see orders/ flowsheets Anemia. KRISTINA with HD AMS. resolved now ok to dc from renal standpoint
--- NOTE | 2017-10-30 16:52 | CHAPLAIN ---
patient was sleeping at time of visit
--- NOTE | 2017-10-30 16:54 | CON.PCM_ITS ---
Problem List (1) ESRD (end stage renal disease) Status: Chronic Consultation - Renal 10/30/17 PCP/ Referring MD: Requesting physician: Dr Kohler Primary care physician: Thad Brandt MD Reason for Consultation:: ESRD - History of Present Illness History of Present Illness: The patient is a 72 year old F ESRD on HD MWF schedule. Admitted with AMS. no focal symptoms. currently feels ok no mental status changes. no signs of infection so far - Allergies Allergies: Allergies donepezil [From Aricept] Adverse Reaction (Verified 10/29/17 16:30) dizzy - Current Medications Current Medications: Current Medications Acetaminophen (Tylenol) 650 mg PO Q4H PRN PRN PRN Reason: PAIN Last Admin: 10/30/17 06:02 Dose: 650 mg Al Hydroxide/Mg Hydroxide (Mylanta Ii) 30 ml PO Q6H PRN PRN PRN Reason: Gastric burning Albuterol/Ipratropium (Duoneb) 3 ml INHALATION Q6H.RT [facility] Last Admin: 10/30/17 13:12 Dose: 3 ml Aspirin (Ecotrin) 81 mg PO DAILY@0800 [facility] Last Admin: 10/30/17 10:24 Dose: 81 mg Atorvastatin Calcium (Lipitor) 80 mg PO QHS [facility] Last Admin: 10/29/17 22:46 Dose: 80 mg Budesonide (Pulmicort Aerosol) 0.5 mg INHALATION Q12H.RT [facility] Last Admin: 10/30/17 07:15 Dose: 0.5 mg Bupropion HCl (Wellbutrin Xl) 300 mg PO DAILY [facility] Carvedilol (Coreg) 12.5 mg PO BID [facility] Last Admin: 10/30/17 10:24 Dose: 12.5 mg Clopidogrel Bisulfate (Plavix) 75 mg PO DAILY [facility] Last Admin: 10/30/17 10:24 Dose: 75 mg Dextrose (D50w Syringe) 0 gm IV X1 PRN; Protocol PRN Reason: Hypoglycemia Furosemide (Lasix) 80 mg PO DAILY [facility] Last Admin: 10/30/17 10:24 Dose: 80 mg Glucagon () 1 mg IM .X1 PRN PRN Reason: Hypoglycemia Heparin Sodium (Porcine) (Heparin Na) 5,000 unit SC Q12 [facility] Last Admin: 10/30/17 10:23 Dose: 5,000 u Insulin Human Lispro (Humalog Kwikpen (Bkc)) 0 unit SQ ACHS [facility] PRN Reason: Protocol Last Admin: 10/30/17 12:16 Dose: Not Given Isosorbide Dinitrate (Isordil) 20 mg PO 0600,1200,1800 [facility] Last Admin: 10/30/17 12:56 Dose: 20 mg Nitroglycerin (Nitrostat) 0.4 mg SUBLINGUAL PRN PRN PRN Reason: CARDIAC/CHEST PAIN Nutritional Formula (Lactose Free) (Glucerna Shake) 120 ml PO 4X/DAY [facility] Last Admin: 10/30/17 12:57 Dose: 120 ml Ondansetron HCl (Zofran) 4 mg IV Q6H PRN PRN PRN Reason: NAUSEA Pantoprazole Sodium (Protonix) 40 mg PO DAILY [facility] Last Admin: 10/30/17 10:24 Dose: 40 mg Promethazine HCl (Phenergan) 12.5 mg IV Q6H PRN PRN PRN Reason: NAUSEA/VOMITING Sertraline HCl (Zoloft) 100 mg PO DAILY [facility] Last Admin: 10/30/17 10:24 Dose: 100 mg Sodium Chloride () 5 - 30 ml IV UD PRN PRN Reason: SALINE FLUSH Last Admin: 10/29/17 22:57 Dose: 10 ml Zolpidem Tartrate (Ambien (Generic)) 5 mg PO QHS PRN PRN PRN Reason: INSOMNIA - Past Medical History Past Medical History (Chronic Problems): Chronic Problems ESRD (end stage renal disease) (Chronic) Coronary artery disease (Chronic) Status post stent RTA (renal tubular acidosis) (Chronic) Type 4 Type II diabetes mellitus (Chronic) CKD (chronic kidney disease), stage II (Chronic) Cervicogenic headache (Chronic) Asthma (Chronic) Anemia of chronic disease (Chronic) Congestive heart failure (Chronic) Benign hypertension (Chronic) - Past Surgical History Surgical History: appendectomy, cholecystectomy - Social History Smoking Status: Never smoker - Family History Maternal History Items: Heart Disease Paternal History Items: Cancer, Heart Disease Review of Systems Constitutional: Denies: Chills, Fever, Weight Change HEENT: Denies: Head Aches, Sinus Congestion, Sinus Drainage Cardiovascular: Denies: Chest Pain, Palpitations Respiratory: Denies: Cough, Shortness of breath at rest, Sputum production Gastrointestinal: Denies: Abdominal Pain, Nausea, Vomiting Genitourinary: Denies: Dysuria Musculoskeletal: Denies: Joint Pain, Joint Tenderness Skin: Denies: Rash, Wounds Neurological: Denies: Numbness, Tingling, Focal weakness Psychiatric: Denies: Anxiety, Depression, Homicidal Ideations, Suicidal Ideations Hematologic/ Lymphatic: Denies: Easy Bruising, Easy Bleeding Patient Problems: Active and Suspected Problems Altered mental status, unspecified (Acute) - Physical Exam General: Alert, Oriented x3, Cooperative HEENT: Atraumatic, PERRLA, EOMI, Normocephalic Neck: Supple, No JVD, Negative Carotid Bruits Lungs: Clear to auscultation, Normal air movement Cardiovascular: Regular rate, No murmurs Abdomen: Bowel Sounds Present, Soft, Non Tender Extremities: No edema, Capillary Refill Less than 3 Seconds Skin: No rashes, No breakdown Musculoskeletal: No Tenderness to Palpation of Joints or Extremities Neurological: Cranial nerves II-XII grossly intact Psych/Mental Status: Normal Affect, Appropriate Vital Signs Temp Pulse Resp BP Pulse Ox 98.5 F 73 16 147/74 H 99 10/30/17 16:15 10/30/17 16:15 10/30/17 16:15 10/30/17 16:15 10/30/17 16:15 Oxygen Delivery Method Room Air Weight: 70.959 kg Body Mass Index (BMI) 29.5 Intake and Output for Last 24 Hours 10/28/17 10/29/17 10/30/17 23:59 23:59 23:59 Intake Total 300 / 300 Output Total 300 / 300 Balance 0 / 0 Laboratory Tests Past 24 Hrs 10/30/17 10/30/17 05:34 05:34 WBC 7.5 RBC 2.49 L Hgb 8.1 L Hct 24.9 L MCV 100.0 H MCH 32.5 H MCHC 32.5 RDW 15.5 H RDW Differential 53.5 H Plt Count 268 MPV 9.2 Immature Gran % (Auto) 0.300 Neut % (Auto) 57.1 Lymph % (Auto) 28.8 [place] % (Auto) 5.3 Eos % (Auto) 8.1 H Baso % (Auto) 0.4 Absolute Neuts (auto) 4.3 Absolute Lymphs (auto) 2.17 Total Counted Not Reportable Sodium 141 Potassium 3.8 Chloride 105 Carbon Dioxide 26.0 Anion Gap 10 BUN 28 H Creatinine 4.75 H Estim Creat Clear Calc 8.20 Est GFR (MDRD) Af Amer 12 L Est GFR (MDRD) Non-Af 10 L BUN/Creatinine Ratio 5.9 L Glucose 98 Calcium 8.8 POC Glucose 10/30/17 10/30/17 10/29/17 10:57 06:01 22:51 POC Glucose 142 H 132 H 92 Assessment/Plan All Active Problems Altered mental status, unspecified (Acute) Confusion (Resolved) UTI (urinary tract infection) (Resolved) Chest pressure (Resolved) Healthcare-associated pneumonia (Resolved) ESRD. HD MWF schedule. seen on dialysis today. no complaints. see orders/ flowsheets Anemia. KRISTINA with HD AMS. resolved now ok to dc from renal standpoint
[2017-10-30 17:25] LABS: Bedside Glucose 98 mg/dL (70-110)
--- NOTE | 2017-10-30 18:07 | DIALYSIS ---
Hemodialysis completed as ordered. -1000ml UF today. Tolerated well. Hemostasis obtained. Report to Charisse VALLADARES
[2017-10-30] MEDS: 0.9% NaCl Peripheral Flush Adult/Peds IV (21:31)
[2017-10-30] MEDS: Insulin Lispro 100 UNIT/ML INSULN.PEN SQ (21:32)
[2017-10-30] MEDS: Atorvastatin Calcium 80 MG Tablet PO (21:33)
[2017-10-30 22:35] LABS: Bedside Glucose 220 mg/dL (70-110)
[2017-10-31] VITALS (13 sets, daily range): BP systolic 113–151; BP diastolic 57–68; PULSE 67–86; RESP 16–18; TEMP 36.4–37.4; O2SAT 97–100
[2017-10-31] MEDS: Isosorbide DN 20 MG Tablet PO ×3 (06:00→17:19)
[2017-10-31 06:05] LABS: Bedside Glucose 147 mg/dL (70-110)
[2017-10-31 06:52] LABS: Hematocrit 25.4 % (37-47); Hemoglobin 8.4 g/dl (12.0-15.0); Mean Corp Hgb Conc 33.1 g/gl (32-36); Mean Corpuscular Hgb 31.9 pg (27.0-32.0); Mean Corpuscular Volume 96.6 fL (81-99); Mean Platelet Vol. 8.7 fl (6.2-12.0); Platelet Count 248 K/mm3 (150-450); RBC Distribution Width CV 16.2 % (11.6-14.6); RBC Distribution Width SD 56.4 fl (35.1-43.9); Red Blood Count 2.63 M/mm3 (4.2-5.4); White Blood Count 6.9 K/mm3 (4.4-11.0)
[2017-10-31 06:56] LABS: Scan Indicated on CBC? Y/N NO
[2017-10-31 07:02] LABS: Anion Gap 8 (5-15); BUN 22 mg/dL (7-18); BUN/Creat Ratio 5.9 RATIO (10-20); Calcium,Total 8.4 mg/dL (8.5-10.1); Chloride 104 mmol/L (98-107); Creatinine, Serum 3.73 mg/dL (0.55-1.02); EST Glomerular Filtration Rate 13 mL/min (>60); Est Glom Filt Rate - Afr Amer 15 mL/min (>60); Estimated Creatinine Clearance 10.44 ml/min; Glucose 124 mg/dL (74-106); Potassium 3.9 mmol/L (3.5-5.1); Sodium Level 140 mmol/L (136-145)
--- NOTE | 2017-10-31 08:45 | CASEMGMT ---
Addendum entered by Janet Shelton 10/31/17 08:55: Janice Reynoso [employer]OTH OPENER [employer] spoke with this worker stating that pt is getting MRI done today and will be kept one more night and could discharge tomorrow if medically cleared. BHAVANI called Sunitha at [facility] informing her of updated clinicals that were faxed and informing her that the doctor will be keeping pt one more day with discharge tomorrow. SW waiting for call back from Sunitha at [facility]. Original Note: Social Work Note SW received message from Sunitha at [facility] asking for updated clinicals. BHAVANI faxed updated clinicals to Sunitha at [facility]. Plan: [facility] pending acceptance Janet Shelton PRINT BINDING WORKER, CLASSROOM TECHNOLOGY TECHNICIAN
[2017-10-31] MEDS: Aspirin E.C. 81 MG Tablet PO (08:56)
--- NOTE | 2017-10-31 09:09 | MRI_ITS ---
STUDY: MRI BRAIN WITHOUT CONTRAST REASON FOR EXAM: Female, 72 years old. confusion, agitated Patient could not hold still, medicated, Ativan didn't help TECHNIQUE: Standardized multiplanar fat and water weighted pulse sequences were obtained. COMPARISON: CT October 29, 2017 FINDINGS: Motion artifact limits evaluation. Normal size of the ventricles and extra-axial spaces for the patient's age. There are multiple white matter hyperintensities, distributed throughout the deep white matter tracts of the cerebral hemispheres, consistent with moderate chronic white matter ischemic changes. Normal bilateral basal ganglia. Normal thalami. There is no extra-axial fluid accumulation. Normal flow voids within the major intracranial circulation suggesting patency by spin echo criteria. Normal sella turcica, pituitary gland, infundibular stalk, optic chiasm and hypothalamus. Normal tectal plate and pineal gland. There are chronic white matter ischemic changes of the megan. The midbrain and medulla are otherwise normal. Normal cerebellum. Normal basal cisterns. There is fluid in the bilateral mastoid air cells.. Normal bilateral internal auditory canals. No demonstrated orbital abnormality, within the constraints of a routine brain study. Normal visualized paranasal sinuses. Normal calvarium and skull base. Normal visualized soft tissue structures. Normal visualized upper cervical spine. MRI/Brain without Contrast IMPRESSION: Involutional changes of the brain, as described above. There is moderate small vessel ischemic white matter disease. There is fluid in the bilateral mastoid air cells. Electronically Signed: Casandra Kapadia MD at 14:27 EDT , Service support ,
--- NOTE | 2017-10-31 11:31 | PCM.PROGNOTE ---
<Janice Reynoso - Last Filed: 10/31/17 11:35> Subjective: Patient seen and examined. Resting in chair eating breakfast, in no acute distress. Remains pleasantly confused. crew chief in room. Patient denies current complaints. - Physical Exam General: Alert, Cooperative HEENT: Atraumatic, PERRLA, EOMI, Normocephalic Neck: Supple, No JVD, Negative Carotid Bruits Lungs: Clear to auscultation, Normal air movement Cardiovascular: Regular rate, Regular Rhythm, Normal S1, Normal S2, No murmurs Abdomen: Bowel Sounds Present, Soft, Non Tender, Non-Distended Extremities: No clubbing, No cyanosis, No edema, Capillary Refill Less than 3 Seconds Skin: No rashes, No breakdown Musculoskeletal: No Tenderness to Palpation of Joints or Extremities Neurological: Cranial nerves II-XII grossly intact, Neuro grossly intact Psych/Mental Status: Normal Affect, Appropriate Vital Signs Temp Pulse Resp BP Pulse Ox 98.0 F 72 16 137/65 H 97 10/31/17 08:50 10/31/17 09:06 10/31/17 08:50 10/31/17 08:50 10/31/17 08:50 Oxygen Delivery Method Room Air Weight: 70.959 kg Body Mass Index (BMI) 29.5 Intake and Output for Last 24 Hours 10/29/17 10/30/17 10/31/17 23:59 23:59 23:59 Intake Total 1150 / 1150 300 / 300 Output Total 1300 / 1300 Balance -150 / -150 300 / 300 Laboratory Tests Past 24 Hrs 10/31/17 10/31/17 06:18 06:18 WBC 6.9 RBC 2.63 L Hgb 8.4 L Hct 25.4 L MCV 96.6 MCH 31.9 MCHC 33.1 RDW 16.2 H RDW Differential 56.4 H Plt Count 248 MPV 8.7 Sodium 140 Potassium 3.9 Chloride 104 Carbon Dioxide 28.0 Anion Gap 8 BUN 22 H Creatinine 3.73 H Estim Creat Clear Calc 10.44 Est GFR (MDRD) Af Amer 15 L Est GFR (MDRD) Non-Af 13 L BUN/Creatinine Ratio 5.9 L Glucose 124 H Calcium 8.4 L POC Glucose 10/31/17 10/30/17 10/30/17 06:01 21:30 17:21 POC Glucose 147 H 220 H 98 Medical Necessity - Tobacco Use Smoking Status: Never smoker Tobacco Use: Non-smoker Assessment/Plan All Active Problems Altered mental status, unspecified (Acute) Confusion (Resolved) UTI (urinary tract infection) (Resolved) Chest pressure (Resolved) Healthcare-associated pneumonia (Resolved) Patient is a 72-year-old female admitted 10/29/2017 due to altered mental status. She has a past medical history of end-stage renal disease on hemodialysis, chronic diastolic CHF, coronary disease status post stent, dementia, type 2 diabetes mellitus, asthma, anemia of chronic disease, hypertension, hyperlipidemia, depression, GERD. 1. Acute encephalopathy-etiology unclear. Patient has underlying history of dementia. Granddaughter who checks on patient daily states her change in mental status was fairly sudden. CT of head showed no acute changes. Chest x-ray unremarkable. UA unremarkable. EKG without evidence of ischemia. Consult neurology. Case management consulted, family expresses need for skilled placement. PT/OT. MRI of brain pending. 2. End-stage renal disease on hemodialysis- hemodialysis regimen Friday, Friday, Friday. Left arm AV fistula. Trend BMP. Follows with Dr. Kapadia. Nephrology consulted. Patient received dialysis today. 3. Chronic diastolic CHF-previous echocardiogram in 2014 with EF 50%, mild to moderate tricuspid valve insufficiency, mild mitral valve insufficiency. Continue home Lasix regimen. 4. Coronary artery disease status post stent-continue aspirin, statin, carvedilol, Plavix, Lasix, isosorbide. 5. Type 2 diabetes [id number] before meals at bedtime with sliding scale insulin. 6. Hypertension-stable, continue home regimen of carvedilol, Lasix, isosorbide. 7. Hyperlipidemia-continue statin. 8. Anemia of chronic disease-stable, trend CBC. 9. Asthma-albuterol aerosol as needed for shortness of breath. 10. Dementia-possible SNF at discharge. PT/OT. 11. Depression-continue home Zoloft, bupropion regimen. 12. GERD-continue PPI. 13. History of dysphagia possibly due to esophageal stricture-follows with Dr. Sharp as outpatient. Speech therapy evaluated patient. No issues with swallowing at this time. DVT prophylaxis-heparin subcu. Discharge planning: Case management involved, SNF pending pre-cert and further inpatient evaluation. This patient was seen by BONI Ledbetter under the supervision of Dr. Adams. <Rosaline Adams - Last Filed: 11/05/17 08:04> - Physical Exam Vital Signs Temp Pulse Resp BP Pulse Ox 97.8 F 73 18 122/45 H 100 11/01/17 09:54 11/01/17 10:00 11/01/17 09:54 11/01/17 09:54 11/01/17 09:54 Oxygen Delivery Method Room Air Weight: 156 lb 7.005 oz Body Mass Index (BMI) 29.5 Code Visit Inpatient E&M: 92637 Subs Hosp L2
--- NOTE | 2017-10-31 11:35 | PN_ITS ---
<Janice Reynoso - Last Filed: 10/31/17 11:35> Subjective: Patient seen and examined. Resting in chair eating breakfast, in no acute distress. Remains pleasantly confused. parquetry layer in room. Patient denies current complaints. - Physical Exam General: Alert, Cooperative HEENT: Atraumatic, PERRLA, EOMI, Normocephalic Neck: Supple, No JVD, Negative Carotid Bruits Lungs: Clear to auscultation, Normal air movement Cardiovascular: Regular rate, Regular Rhythm, Normal S1, Normal S2, No murmurs Abdomen: Bowel Sounds Present, Soft, Non Tender, Non-Distended Extremities: No clubbing, No cyanosis, No edema, Capillary Refill Less than 3 Seconds Skin: No rashes, No breakdown Musculoskeletal: No Tenderness to Palpation of Joints or Extremities Neurological: Cranial nerves II-XII grossly intact, Neuro grossly intact Psych/Mental Status: Normal Affect, Appropriate Vital Signs Temp Pulse Resp BP Pulse Ox 98.0 F 72 16 137/65 H 97 10/31/17 08:50 10/31/17 09:06 10/31/17 08:50 10/31/17 08:50 10/31/17 08:50 Oxygen Delivery Method Room Air Weight: 70.959 kg Body Mass Index (BMI) 29.5 Intake and Output for Last 24 Hours 10/29/17 10/30/17 10/31/17 23:59 23:59 23:59 Intake Total 1150 / 1150 300 / 300 Output Total 1300 / 1300 Balance -150 / -150 300 / 300 Laboratory Tests Past 24 Hrs 10/31/17 10/31/17 06:18 06:18 WBC 6.9 RBC 2.63 L Hgb 8.4 L Hct 25.4 L MCV 96.6 MCH 31.9 MCHC 33.1 RDW 16.2 H RDW Differential 56.4 H Plt Count 248 MPV 8.7 Sodium 140 Potassium 3.9 Chloride 104 Carbon Dioxide 28.0 Anion Gap 8 BUN 22 H Creatinine 3.73 H Estim Creat Clear Calc 10.44 Est GFR (MDRD) Af Amer 15 L Est GFR (MDRD) Non-Af 13 L BUN/Creatinine Ratio 5.9 L Glucose 124 H Calcium 8.4 L POC Glucose 10/31/17 10/30/17 10/30/17 06:01 21:30 17:21 POC Glucose 147 H 220 H 98 Medical Necessity - Tobacco Use Smoking Status: Never smoker Tobacco Use: Non-smoker Assessment/Plan All Active Problems Altered mental status, unspecified (Acute) Confusion (Resolved) UTI (urinary tract infection) (Resolved) Chest pressure (Resolved) Healthcare-associated pneumonia (Resolved) Patient is a 72-year-old female admitted 10/29/2017 due to altered mental status. She has a past medical history of end-stage renal disease on hemodialysis, chronic diastolic CHF, coronary disease status post stent, dementia, type 2 diabetes mellitus, asthma, anemia of chronic disease, hypertension, hyperlipidemia, depression, GERD. 1. Acute encephalopathy-etiology unclear. Patient has underlying history of dementia. Granddaughter who checks on patient daily states her change in mental status was fairly sudden. CT of head showed no acute changes. Chest x- ray unremarkable. UA unremarkable. EKG without evidence of ischemia. Consult neurology. Case management consulted, family expresses need for skilled placement. PT/OT. MRI of brain pending. 2. End-stage renal disease on hemodialysis- hemodialysis regimen Friday, Friday, Friday. Left arm AV fistula. Trend BMP. Follows with Dr. Kapadia. Nephrology consulted. Patient received dialysis today. 3. Chronic diastolic CHF-previous echocardiogram in 2014 with EF 50%, mild to moderate tricuspid valve insufficiency, mild mitral valve insufficiency. Continue home Lasix regimen. 4. Coronary artery disease status post stent-continue aspirin, statin, carvedilol, Plavix, Lasix, isosorbide. 5. Type 2 diabetes [id number] before meals at bedtime with sliding scale insulin. 6. Hypertension-stable, continue home regimen of carvedilol, Lasix, isosorbide. 7. Hyperlipidemia-continue statin. 8. Anemia of chronic disease-stable, trend CBC. 9. Asthma-albuterol aerosol as needed for shortness of breath. 10. Dementia-possible SNF at discharge. PT/OT. 11. Depression-continue home Zoloft, bupropion regimen. 12. GERD-continue PPI. 13. History of dysphagia possibly due to esophageal stricture-follows with Dr. Sharp as outpatient. Speech therapy evaluated patient. No issues with swallowing at this time. DVT prophylaxis-heparin subcu. Discharge planning: Case management involved, SNF pending pre-cert and further inpatient evaluation. This patient was seen by BONI Ledbetter under the supervision of Dr. Adams. <Rosaline Adams - Last Filed: 11/05/17 08:04> - Physical Exam Vital Signs Temp Pulse Resp BP Pulse Ox 97.8 F 73 18 122/45 H 100 11/01/17 09:54 11/01/17 10:00 11/01/17 09:54 11/01/17 09:54 11/01/17 09:54 Oxygen Delivery Method Room Air Weight: 156 lb 7.005 oz Body Mass Index (BMI) 29.5 Code Visit Inpatient E&M: 20927 Subs Hosp L2
--- NOTE | 2017-10-31 12:21 | CASEMGMT ---
Social Work Note BHAVANI received call from Sunitha at [facility] stating that she offered the pt's granddaughter Radha a correction care bed for pt. Sunitha states that Radha had mentioned that she needed to confirm with her dad and sister about discharge plans. Sunitha states that pt will come to [facility] under skilled services. BHAVANI placed a call to pt's granddaughter Radha and left her a message informing her that the doctor is keeping pt one more day with a projected discharge of tomorrow. BHAVANI informed Radha that she will need to make a decision today regarding accepting the offer from [facility] as the doctor is wanting to discharge pt today. BHAVANI received a call back from pt's granddaughter Radha stating that she spoke with her dad (Ariel) and her dad is wishy washing regarding pt going to SNF at discharge. Radha states that her dad (Ariel) is stating that he is able to take pt home and care for her. Radha states that they have been trying that and it is not working. Radha states that her dad works during the day. Radha states that pt has had recent falls and has informed her dad that if pt falls and breaks a hip then she isn't going to recover from that. Radha states that she is a nurse at [facility]. BHAVANI asked Radha if she had recent HCPOA forms available to bring into hospital that lists her as HCPOA because at this time, the HCPOA scanned into the system at [facility] has Ariel Mullins (Radha's dad, pt's son) listed as HCPOA. Radha states that she has forms completed but they are at her grandma's house and she has been unable to get them. BHAVANI encouraged Radha to bring in HCPOA forms because at this time the forms that are available to this worker have her father Ariel Mullins listed as HCPOA and he would have the say about pt's discharge. Radha states understanding. SW in to speak with pt. It appears pt is less confused today and was able to hold a conversation with this worker. SW asked pt if she remembers filling out HCPOA forms. Pt confirms that she remembers filling out HCPOA forms and listed her granddaughter Radha as HCPOA. Pt also states that she thinks her son Ariel was also listed as HCPOA. SW informed pt that this worker has been talking to her granddaughter Radha about discharge plans. SW informed pt that her granddaughter Radha and PT/OT are recommending pt go SNF short term for rehabilitation. SW reiterated to pt that it would be short term for some rehab and 24/7 nursing. Pt is agreeable to SNF placement stating I guess I will go, but I am not living there. SW once again, informed pt that it is for short term rehabilitation and pt has the right to leave the assisted at any time. Pt states understanding and agrees to SNF placement. SW placed a call to pt's granddaughter Radha and informed her that this worker spoke with pt and she is agreeable to SNF placement. Radha states that she has spoken to her grandma and she is open to the idea of going to SNF and that it helps that Radha works at [facility]. Radha states that she has concerns that her dad, Ariel, will come into the hospital today and talk pt into not going to SNF at discharge. BHAVANI asked Radha if she had current phone number for her dad as the recent number that is listed is not working. Radha provided her dad's phone number at [phone]. BHAVANI informed Radha that this worker can call pt's son, her father, and speak to him about placement as well. Radha gave this worker permission to call her dad. SW encouraged Radha to continue to talk with her dad about placement. Radha states understanding. BHAVANI informed Radha that pt should be able to discharge to [facility] tomorrow and that transportation can be arranged if she would like. Radha states that she and her dad would like to transport pt at discharge. BHAVANI placed a call to pt's son Ariel. BHAVANI informed Ariel that this worker met with pt and pt was able to hold a conversation with this worker. BHAVANI informed Ariel that this worker has been talking to his daughter Radha in regards to discharge plans. BHAVANI informed Ariel that his daughter Radha would like pt to go to [facility] at discharge. BHAVANI informed Ariel that this worker was in to speak with pt and pt agreed to go to [facility] short term for rehabilitation. BHAVANI informed Ariel that it would be for short term and that he is able to take pt out of [facility] whenever he would like to. BHAVANI informed Ariel that PT/OT are recommending placement and that pt was only able to ambulate 10-15 ft with PT/OT. BHAVANI informed Ariel that it would be for short term rehabilitation and for continued 24/7 nursing. Ariel states understanding. Ariel is agreeable to pt going to [facility] at discharge. BHAVANI informed Ariel that pt should be able to discharge to [facility] tomorrow and that transportation can be arranged if needed. BHAVANI informed Ariel that his daughter Radha had mentioned possibly discharging pt. Ariel states that he should be able to transport pt tomorrow to [facility]. BHAVANI provided direct number to Ariel and informed him that this worker will be on the floor at [facility] until around 4:00pm. Ariel states understanding. BHAVANI placed a call to Sunitha at [facility] and left her a message updating her that this worker has spoken to the granddaughter, the son, and the pt and they are all agreeable to [facility] at discharge. BHAVANI informed Sunitha that pt should be able to discharge tomorrow and that the granddaughter and son had mentioned possibly transporting pt tomorrow. Plan: Discharge to [facility] tomorrow under skilled Green sheet on chart. Janet Shelton BLEACHING SUPERVISOR, MAGNETIC TAPE TYPEWRITER OPERATOR
[2017-10-31] MEDS: LORazepam 2 MG/ML Syringe 0.5 MG IV (12:50)
[2017-10-31] MEDS: 0.9% NaCl Peripheral Flush Adult/Peds IV (12:51)
--- NOTE | 2017-10-31 13:14 | DIALYSIS ---
HD x 3 hours complete. Tolerated tx well. UF of 2000ml. Used upper left arm fistula. Harper removed post tx. Hemostasis achieved. Report was given to JACQUELYN Deras.
--- NOTE | 2017-10-31 13:28 | CON.PCM_ITS ---
Problem List (1) Confusion Status: Resolved Reason for Consult Date of Consultation: 10/31/17 Reason for Consultation: confusion History of Present Illness: The patient is a 72 year old CF with PMH HTN, DM, ESRD on HD, Dementia, CAD s/p stents, CHF admitted with confusion. History could not be obtained from the patient, history is obtained from medical records and grand daughter. Per documentation patient was admitted with acute confusion on 10/29/17, had missed dialysis prior to admission, per grand daughter she lives with her son, uses wheelchair or walker to ambulate, at baseline has balance issues and falls, does need assistance for most of her ADLs, has history of chronic ARNOLD and at baseline is somewhat confused and not oriented. Per grand daughter she was more confused from her baseline on admission but at present is back to her baseline. Patient denies any ARNOLD, visual disturbances, sensory loss, focal motor weakness at present. CT head on admission reported nothing acute. Creatinine 4.7 on admission, UA unremarkable. [] Past Medical History Past Medical History (Chronic Problems): Chronic Problems ESRD (end stage renal disease) (Chronic) Coronary artery disease (Chronic) Status post stent RTA (renal tubular acidosis) (Chronic) Type 4 Type II diabetes mellitus (Chronic) CKD (chronic kidney disease), stage II (Chronic) Cervicogenic headache (Chronic) Asthma (Chronic) Anemia of chronic disease (Chronic) Congestive heart failure (Chronic) Benign hypertension (Chronic) Allergies donepezil [From Aricept] Adverse Reaction (Verified 10/29/17 16:30) dizzy Home Medications: Ambulatory Orders Medication Instructions Recorded Albuterol IH (ProAir) [Proair Hfa] 2 puff INHALATION Q4H PRN PRN 07/04/14 Atorvastatin Calcium [Lipitor] 80 mg PO QHS 07/04/14 Carvedilol [Coreg (Beta Lela)] 12.5 mg PO BID 07/04/14 Clopidogrel Bisulfate [Plavix] 75 mg PO DAILY 07/04/14 Furosemide [Lasix] 80 mg PO DAILY 07/04/14 Sertraline HCl [Zoloft] 100 mg PO DAILY 07/04/14 Aspirin E.C. [Ecotrin] 81 mg PO DAILY@0800 07/08/16 Ipratropium/Albuterol Sulfate 3 ml INHALATION Q6H.RT 07/29/16 [Duoneb] Nitroglycerin [Nitrostat] 0.4 mg SL PRN PRN 07/29/16 Fluticasone/Salmeterol [Advair 1 each IH BID 12/01/16 250-50 Diskus] hydrOXYzine pamoate capsule 25 mg PO BID PRN PRN 12/01/16 [Vistaril pamoate capsule] Acetaminophen [Tylenol Tablet] 650 mg PO Q4H PRN PRN tablet 12/03/16 Isosorbide DN [Isordil] 20 mg PO BID 10/11/17 Ondansetron HCl [Zofran] 1 tab PO BID PRN PRN 10/11/17 Bupropion HCl [Bupropion Xl] 300 mg PO DAILY 10/12/17 Pantoprazole Sodium [Protonix] 40 mg PO DAILY 10/29/17 Surgical History: appendectomy, cholecystectomy Lives: - - with son Smoking Status: Never smoker Tobacco Use: Non-smoker Alcohol: None Drugs: None - *Family History Maternal History Items: Heart Disease Paternal History Items: Cancer, Heart Disease Review of Systems Constitutional: Reports: - - complete ROS negative except as documented in HPI Patient Problems: Active and Suspected Problems Altered mental status, unspecified (Acute) - Physical Exam General: - - awake, alert AoAx 2 HEENT: Normocephalic Neck: Supple Lungs: Clear to auscultation Cardiovascular: Normal S1, Normal S2 Abdomen: Bowel Sounds Present Extremities: No cyanosis Skin: No rashes Musculoskeletal: No Tenderness to Palpation of Joints or Extremities Neurological: - - consious, awake, AoAx2, CN 2-12 grossly intact, power 5/5 all 4 extremities, denies sensory loss, no cerebellar signs, Reflexes + B/L B/S/T/K/ A, gait deferred. Psych/Mental Status: Normal Affect Vital Signs Temp Pulse Resp BP Pulse Ox 97.5 F L 81 16 137/67 H 100 10/31/17 13:13 10/31/17 13:13 10/31/17 13:13 10/31/17 13:13 10/31/17 12:28 Oxygen Delivery Method Room Air Weight: 70.959 kg Body Mass Index (BMI) 29.5 Intake and Output for Last 24 Hours 10/29/17 10/30/17 10/31/17 23:59 23:59 23:59 Intake Total 1150 / 1150 300 / 300 Output Total 1300 / 1300 1999 Balance -150 / -150 -1700 / -1700 Laboratory Tests Past 24 Hrs 10/31/17 10/31/17 06:18 06:18 WBC 6.9 RBC 2.63 L Hgb 8.4 L Hct 25.4 L MCV 96.6 MCH 31.9 MCHC 33.1 RDW 16.2 H RDW Differential 56.4 H Plt Count 248 MPV 8.7 Sodium 140 Potassium 3.9 Chloride 104 Carbon Dioxide 28.0 Anion Gap 8 BUN 22 H Creatinine 3.73 H Estim Creat Clear Calc 10.44 Est GFR (MDRD) Af Amer 15 L Est GFR (MDRD) Non-Af 13 L BUN/Creatinine Ratio 5.9 L Glucose 124 H Calcium 8.4 L POC Glucose 10/31/17 10/30/17 10/30/17 06:01 21:30 17:21 POC Glucose 147 H 220 H 98 Assessment/Plan All Active Problems Altered mental status, unspecified (Acute) Confusion (Resolved) UTI (urinary tract infection) (Resolved) Chest pressure (Resolved) Healthcare-associated pneumonia (Resolved) The patient is a 72 year old CF with PMH HTN, DM, ESRD on HD, Dementia, CAD s/p stents, CHF admitted with confusion. History could not be obtained from the patient, history is obtained from medical records and grand daughter. Per documentation patient was admitted with acute confusion on 10/29/17, had missed dialysis prior to admission, per grand daughter she lives with her son, uses wheelchair or walker to ambulate, at baseline has balance issues and falls, does need assistance for most of her ADLs, has history of chronic ARNOLD and at baseline is somewhat confused and not oriented. Per grand daughter she was more confused from her baseline on admission but at present is back to her baseline. Patient denies any ARNOLD, visual disturbances, sensory loss, focal motor weakness at present. CT head on admission reported nothing acute. Creatinine 4.7 on admission, UA unremarkable. Impression Dementia Likely Metabolic Encephalopathy-improved at present Plan -Check MRI brain without contrast -EEG as outpatient -On ASA/Plavix per Cardiology. Bleeding risk discussed, will defer to Cardiology -On Lipitor -Avoid benzodiazepines, avoid Wellbutrin if possible, will defer to primary team -Check Vitamin B12, TSH, ESR and Ammonia level -Labs reviewed -PT/OT -SNF placement -Further medical management per primary team -GI/DVT prophylaxis -Fall precautions -Follow up with Neurology as outpatient in 6 weeks -Please call with questions if any -Thank you for allowing us to participate in patient's care and management I spent 60 minutes taking history, doing physical examination, reviewing medical records, coordinating care and counseling the patient. Code Visit Inpatient E&M: 60600 Init Hosp L3
--- NOTE | 2017-10-31 13:41 | CASEMGMT ---
Social Work Note Katie Peres, Dialysis Nurse updated this worker that pt's granddaughter Keira in to see pt and informed pt that she will be going [facility] [place] [facility] and pt reportedly became upset. BHAVANI spoke with pt's granddaughter Keira and informed her of discharge plans. BHAVANI informed Keira that pt will be discharged to [facility] tomorrow in a [facility]n long term care bed but for right now is going under skilled for short term placement with the possibility that pt will need [place] [facility] placement. BHAVANI informed Keira that at this time, this worker has been informing Ariel Garcia and the pt that at this time, pt is going under skilled for short term placement but will be going in a rn long term care bed with the possibility that eventually pt will need rn long term care care. Keira states understanding. BHAVANI placed a call to pt's granddaughter Radha and updated her that this worker was able to talk to her sister Keira. BHAVANI informed Radha that Keira had mentioned to pt that it's a rn long term care pt and pt became upset. BHAVANI once again reiterated to Radha that once tomorrow comes and if pt denies going to [facility] and is not confused pt has the right to go home. BHAVANI also informed Radha that once tomorrow comes if pt denies going, is confused and if her son Ariel denies going, the staff at [facility] will consider Ariel's decision as the one to follow as currently he is listed as HCPOA. BHAVANI emphasized the importance with Radha that she will need to bring in the recent copy of HCPOA that has her listed as HCPOA so she will be able to make decisions for pt if pt becomes confused. Plan: [facility] tomorrow under skilled Janet Shelton FEDERAL MEDIATOR, NURSE ADMINISTRATOR
[2017-10-31 14:21] LABS: Bedside Glucose 168 mg/dL (70-110)
[2017-10-31] MEDS: Heparin Injection (Vial) 5,000 UNIT/ML VIAL 5000 UNIT SC ×2 (14:23→21:57)
[2017-10-31] MEDS: Furosemide 80 MG Tablet PO (14:24)
[2017-10-31] MEDS: Carvedilol 12.5 MG Tablet PO ×2 (14:25→21:58)
[2017-10-31] MEDS: Pantoprazole Sodium 40 MG Tablet PO (14:25)
[2017-10-31] MEDS: buPROPion (XL) 300 MG TABLET.XL PO (14:25)
[2017-10-31] MEDS: Sertraline 100 MG Tablet PO (14:25)
[2017-10-31] MEDS: Clopidogrel Bisulfate 75 MG Tablet PO (14:26)
[2017-10-31] MEDS: Insulin Lispro 100 UNIT/ML INSULN.PEN SQ ×3 (14:33→21:58)
--- NOTE | 2017-10-31 15:24 | CASEMGMT ---
Addendum entered by Janet Shelton 10/31/17 16:08: It should be noted that this worker had informed the family that this worker leaves the floor around 4:00pm everyday and if they wanted to talk to this worker then they needed to be at the hospital before 4:00pm. This worker stayed on the floor till 4:00pm, checked pt's room and no family present. Original Note: Social Work Note Green sheet on pt's chart. SW wrote on green sheet that family had mentioned they would like to transport pt tomorrow to [facility] and to call family if family not present when discharge orders are completed. [facility] 7000 completed in [facility]. Plan: Discharge to [facility] tomorrow under skilled Janet Shelton STRUCTURAL MANAGER, LABOR EMPLOYMENT ASSOCIATE
[2017-10-31 15:54] LABS: Vitamin B12 592 pg/mL (211-911)
[2017-10-31 16:02] LABS: Ammonia < 10.0 umol/L (11-32)
[2017-10-31 16:05] LABS: Erythrocyte Sedimentation Rate 45 mm/hr (0-30)
[2017-10-31 16:33] LABS: Thyroid Stim Hormone (TSH) 2.03 uIU/mL (0.358-3.74)
[2017-10-31 17:50] LABS: Bedside Glucose 232 mg/dL (70-110)
--- NOTE | 2017-10-31 18:43 | PCM.PN.BLA ---
Progress Note in dialysis today see orders/ flowsheets MRI looks ok no complaints breathing is ok possible dc to [facility] tomorrow
[2017-10-31] MEDS: Atorvastatin Calcium 80 MG Tablet PO (21:58)
[2017-10-31 22:10] LABS: Bedside Glucose 165 mg/dL (70-110)
[2017-11-01 06:30] VITALS: BP 124/58; PULSE 71; RESP 16; TEMP 36.7; O2SAT 100
[2017-11-01] MEDS: Insulin Lispro 100 UNIT/ML INSULN.PEN SQ ×2 (06:36→11:31)
[2017-11-01] MEDS: Isosorbide DN 20 MG Tablet PO ×2 (06:36→11:32)
[2017-11-01 06:41] LABS: Bedside Glucose 153 mg/dL (70-110)
[2017-11-01 07:00] LABS: Hematocrit 26.7 % (37-47); Hemoglobin 8.9 g/dl (12.0-15.0); Mean Corp Hgb Conc 33.3 g/gl (32-36); Mean Corpuscular Hgb 33.2 pg (27.0-32.0); Mean Corpuscular Volume 99.6 fL (81-99); Platelet Count 252 K/mm3 (150-450); RBC Distribution Width CV 15.3 % (11.6-14.6); RBC Distribution Width SD 53.4 fl (35.1-43.9); Red Blood Count 2.68 M/mm3 (4.2-5.4); White Blood Count 6.3 K/mm3 (4.4-11.0)
[2017-11-01 07:07] LABS: Scan Indicated on CBC? Y/N NO
[2017-11-01 07:15] LABS: Anion Gap 8 (5-15); BUN 27 mg/dL (7-18); BUN/Creat Ratio 8.1 RATIO (10-20); Calcium,Total 8.9 mg/dL (8.5-10.1); Chloride 102 mmol/L (98-107); Creatinine, Serum 3.33 mg/dL (0.55-1.02); EST Glomerular Filtration Rate 15 mL/min (>60); Est Glom Filt Rate - Afr Amer 18 mL/min (>60); Estimated Creatinine Clearance 11.69 ml/min; Glucose 147 mg/dL (74-106); Potassium 3.5 mmol/L (3.5-5.1); Sodium Level 140 mmol/L (136-145)
[2017-11-01] MEDS: Ipratropium/Albuterol Sulfate 3 ML AMPUL.NEB INHALATION (07:29)
[2017-11-01] MEDS: Budesonide Respules 0.5 MG/2 ML AMPUL.NEB. INHALATION (07:29)
[2017-11-01 07:30] VITALS: PULSE 72; RESP 18; O2SAT 97
[2017-11-01 08:25] VITALS: PULSE 80
[2017-11-01] MEDS: Aspirin E.C. 81 MG Tablet PO (08:25)
[2017-11-01] MEDS: Acetaminophen 325 MG Tablet 650 MG PO (08:34)
--- NOTE | 2017-11-01 09:05 | TREXTCA.CO_ITS ---
Addendum entered and electronically signed by BONI Ledbetter 11/01/17 09:14: Code Visit Additional follow-up: Dr. Tomas, neurology- 6 weeks. Original Note: - Diet 10/29/17 20:53 Diet: Renal: 60 gm protein Food consistency:: Regular Liquid Consistency:: Regular/Thin Is pt able to select menu?: Yes - Routine Orders/Code Status Enema Type: Fleetz Enema Frequency: Daily PRN Suppository Type: Dulcolax 10mg Suppository Frequency: Daily PRN Routine Lab Work: CBC, BMP, - - In 3 days and then Q week. Code Status: Full Code - Suggestions for Active Care Change Position every (hours): 2 Times a day to sit in chair: 3 - Therapies Physical Therapy: Eval and Treat Occupational Therapy: Eval and Treat - Problem/Diagnosis (1) ESRD (end stage renal disease) Status: Chronic Current Visit: No (2) Altered mental status, unspecified Status: Acute Current Visit: Yes (3) Coronary artery disease Status: Chronic Comment: Status post stent Current Visit: No (4) Type II diabetes mellitus Status: Chronic Current Visit: No (5) Anemia of chronic disease Status: Chronic Current Visit: No (6) Congestive heart failure Status: Chronic Comment: Diastolic Current Visit: No (7) Benign hypertension Status: Chronic Current Visit: No (8) Dementia Status: Chronic Current Visit: Yes (9) GERD (gastroesophageal reflux disease) Status: Chronic Current Visit: No (10) Depression Status: Chronic Current Visit: No (11) Hyperlipidemia Status: Chronic Current Visit: No (12) Asthma Status: Chronic Current Visit: No - Allergies/Procedures Done in Hospital Allergies/Adverse Reactions: Allergies donepezil [From Aricept] Adverse Reaction (Verified 10/29/17 16:30) dizzy Procedures: Dialysis - Type of Care/Length of Stay Estimated LOS: More Than 30 Days Type of Care Needed: Skilled Rehab Potential: Fair Prognosis: Fair - Additional Orders/Day of Discharge H&P will serve as current which was dated: 10/29/17 Day of Discharge: 11/01/17 - Dietary and Speech Recommendations Dietitian Recommendations/Changes: Consider regular, low sodium diet d/t poor intake. - Follow Up Care Primary Care Physician: Thad Brandt MD [Primary Care Provider] - Please follow up with your Primary Care Physician in: 1 Week Please Follow Up With: Physical Education Department Chair - Dialysis M,W,F When: As scheduled
--- NOTE | 2017-11-01 09:11 | PCM.DC.SUM ---
Discharge Date and Diagnosis Date of Admission: 10/29/17 Date of Discharge: 11/01/17 - Primary Discharge Diagnosis Active and Suspected Problems 1. Acute metabolic encephalopathy, CVA ruled out 2. End-stage renal disease on hemodialysis - Secondary Discharge Diagnosis Chronic Problems ESRD (end stage renal disease) (Chronic) Dementia (Chronic) GERD (gastroesophageal reflux disease) (Chronic) Depression (Chronic) Hyperlipidemia (Chronic) Coronary artery disease (Chronic) Status post stent RTA (renal tubular acidosis) (Chronic) Type 4 Type II diabetes mellitus (Chronic) CKD (chronic kidney disease), stage II (Chronic) Cervicogenic headache (Chronic) Asthma (Chronic) Anemia of chronic disease (Chronic) Congestive heart failure (Chronic) Diastolic Benign hypertension (Chronic) Hospital Course and Treatment Imaging Results: Diagnostic Data Brain CT 10/29/17 17:29 IMPRESSION: Chronic involutional changes of the brain. No change and no acute abnormality. Electronically Signed: Nelson Gibbons MD at 18:29 EDT , Service support , Chest X-Ray 10/29/17 17:29 IMPRESSION: Normal x-ray examination of the chest. Electronically Signed: Nelson Gibbons MD at 18:10 EDT , Service support , Brain MRI 10/31/17 09:09 IMPRESSION: Involutional changes of the brain, as described above. There is moderate small vessel ischemic white matter disease. There is fluid in the bilateral mastoid air cells. Electronically Signed: Casandra Kapadia MD at 14:27 EDT cf, Service support , Dr. Allen- Nephrology Dr. Tomas- Neurology Operations: None Procedures: None Summary of Care Provided: Patient is a 72-year-old female admitted 10/29/2017 due to altered mental status. She has a past medical history of end-stage renal disease on hemodialysis, chronic diastolic CHF, coronary disease status post stent, dementia, type 2 diabetes mellitus, asthma, anemia of chronic disease, hypertension, hyperlipidemia, depression, GERD. 1. Acute suspected metabolic encephalopathy-Patient has underlying history of dementia. Granddaughter who checks on patient daily states her change in mental status was fairly sudden. CT of head showed no acute changes. Chest x-ray unremarkable. UA unremarkable. EKG without evidence of ischemia. Neurology consulted during admission. MRI of brain without acute changes. Mental status improved. Appears to have baseline confusion. Neurology recommending EEG as outpatient. SNF at discharge with further follow-up with neurology as outpatient in 6 weeks. 2. End-stage renal disease on hemodialysis- hemodialysis regimen Friday, Friday, Friday. Left arm AV fistula. Patient received dialysis ?1 during admission. Continue outpatient follow-up as scheduled with nephrology. 3. Chronic diastolic CHF-previous echocardiogram in 2014 with EF 50%, mild to moderate tricuspid valve insufficiency, mild mitral valve insufficiency. Continue home Lasix regimen. 4. Coronary artery disease status post stent-continue aspirin, statin, carvedilol, Plavix, Lasix, isosorbide. 5. Type 2 diabetes mellitus-diet controlled. 6. Hypertension-stable, continue home regimen of carvedilol, Lasix, isosorbide. 7. Hyperlipidemia-continue statin. 8. Anemia of chronic disease-stable, monitor CBC at SNF. 9. Asthma-albuterol aerosol as needed for shortness of breath. 10. Dementia-possible SNF at discharge. PT/OT. 11. Depression-continue home Zoloft, bupropion regimen. 12. GERD-continue PPI. 13. History of dysphagia possibly due to esophageal stricture-follows with Dr. Sharp as outpatient. Speech therapy evaluated patient. No issues with swallowing at this time. General: Alert, Cooperative HEENT: Atraumatic, PERRLA, EOMI, Normocephalic Neck: Supple, No JVD, Negative Carotid Bruits Lungs: Clear to auscultation, Normal air movement Cardiovascular: Regular rate, Regular Rhythm, Normal S1, Normal S2, No murmurs Abdomen: Bowel Sounds Present, Soft, Non Tender, Non-Distended Extremities: No clubbing, No cyanosis, No edema, Capillary Refill Less than 3 Seconds Skin: No rashes, No breakdown Musculoskeletal: No Tenderness to Palpation of Joints or Extremities Neurological: Cranial nerves II-XII grossly intact, Neuro grossly intact Psych/Mental Status: Normal Affect, Appropriate Patient seen exam prior to discharge. Physical assessment as noted above. Patient is stable for discharge to [facility] with follow-up her conditions as noted above. This patient was seen by BONI Ledbetter under the supervision of Dr. Adams. Home Medications: Medications to take at Discharge Albuterol IH (ProAir) [Proair Hfa] 2 puff INHALATION Q4H PRN PRN 07/04/14 Atorvastatin Calcium [Lipitor] 80 mg PO QHS 07/04/14 Carvedilol [Coreg (Beta Lela)] 12.5 mg PO BID 07/04/14 Clopidogrel Bisulfate [Plavix] 75 mg PO DAILY 07/04/14 Furosemide [Lasix] 80 mg PO DAILY 07/04/14 Sertraline HCl [Zoloft] 100 mg PO DAILY 07/04/14 Aspirin E.C. [Ecotrin] 81 mg PO DAILY@0800 07/08/16 Ipratropium/Albuterol Sulfate [Duoneb] 3 ml INHALATION Q6H.RT 07/29/16 Nitroglycerin [Nitrostat] 0.4 mg SL PRN PRN 07/29/16 Fluticasone/Salmeterol [Advair 250-50 Diskus] 1 each IH BID 12/01/16 hydrOXYzine pamoate capsule [Vistaril pamoate capsule] 25 mg PO BID PRN PRN 12/01/16 Acetaminophen [Tylenol Tablet] 650 mg PO Q4H PRN PRN tablet 12/03/16 Isosorbide DN [Isordil] 20 mg PO BID 10/11/17 Ondansetron HCl [Zofran] 1 tab PO BID PRN PRN 10/11/17 Bupropion HCl [Bupropion Xl] 300 mg PO DAILY 10/12/17 Pantoprazole Sodium [Protonix] 40 mg PO DAILY 10/29/17 Primary Care Physician: Thad Brandt MD [Primary Care Provider] - Please follow up with your Primary Care Physician in: 1 Week Please Follow Up With: [facility] - Dialysis M,W,F When: As scheduled Please Follow Up With: David Tomas MD When: 6 Weeks Disposition: Group Home facility Minutes spent on discharge:: 35 Patient Condition:: Stable Medical Necessity - Tobacco Use Smoking Status: Never smoker Tobacco Use: Non-smoker Meaningful Use Info Meaningful Use Diagnoses (Choose all that apply): None applicable
[2017-11-01] MEDS: Heparin Injection (Vial) 5,000 UNIT/ML VIAL 5000 UNIT SC (09:51)
[2017-11-01] MEDS: Pantoprazole Sodium 40 MG Tablet PO (09:52)
[2017-11-01] MEDS: Carvedilol 12.5 MG Tablet PO (09:52)
[2017-11-01] MEDS: Glucerna Shake 120 ML LIQUID PO (09:52)
[2017-11-01] MEDS: Sertraline 100 MG Tablet PO (09:52)
[2017-11-01] MEDS: Clopidogrel Bisulfate 75 MG Tablet PO (09:52)
[2017-11-01] MEDS: Furosemide 80 MG Tablet PO (09:52)
[2017-11-01] MEDS: buPROPion (XL) 300 MG TABLET.XL PO (09:52)
[2017-11-01 09:54] VITALS: BP 122/45; PULSE 73; RESP 18; TEMP 36.6; O2SAT 100
[2017-11-01 10:00] VITALS: PULSE 73
[2017-11-01 11:40] LABS: Bedside Glucose 174 mg/dL (70-110)
== END 2017-11-01 12:22 | disposition skilled nursing facility (03) | DRG 70 ==
LOC: ED 17:54 → MS3 20:43
PROVIDERS: Nurse Practitioner Family; Psychiatry & Neurology Neurology; Admitting Provider Internal Medicine; Emergency Provider Emergency Medicine; Family Provider Family Medicine; PCP Family Medicine; Visit Provider Internal Medicine
DX: G93.41 Metabolic encephalopathy (principal); N18.6 End stage renal disease; I13.2 Hypertensive heart and chronic kidney disease with heart failure and with stage 5 chronic kidney disease, or end stage renal disease; I50.32 Chronic diastolic (congestive) heart failure; E11.22 Type 2 diabetes mellitus with diabetic chronic kidney disease; Z99.2 Dependence on renal dialysis; I25.10 Atherosclerotic heart disease of native coronary artery without angina pectoris; Z95.5 Presence of coronary angioplasty implant and graft; J45.909 Unspecified asthma, uncomplicated; F03.90 Unspecified dementia, unspecified severity, without behavioral disturbance, psychotic disturbance, mood disturbance, and anxiety; K21.9 Gastro-esophageal reflux disease without esophagitis; K22.2 Esophageal obstruction; F32.9 Major depressive disorder, single episode, unspecified; D63.8 Anemia in other chronic diseases classified elsewhere
CPT/HCPCS: 36415; 70450; 70551; 71045; 80048; 81001; 82140; 82607; 82962; 84443; 84484; 85025; 85027; 85652; 90937; 93005; 94640; 97162; 97165; 97535; 97802; 99285; J7030; P9612; A4216; G0257

== ENCOUNTER → 2017-11-07 06:40 | Outpatient (CLI) | payer SELFPAY ==
--- NOTE | 2017-11-07 17:45 | STRESSREP ---
Stress Test Report Pharmacologic myocardial perfusion stress test. 72-year-old lady with a history of coronary artery disease previous stenting to the left anterior descending artery right coronary artery and circumflex artery. Stress protocol: Resting EKG demonstrates sinus tachycardia with a rate of 108 bpm. Resting blood pressure 738/70 mmHg. 0.4 mg of regadenoson was infused per usual protocol followed by Intravenous and flush injection continuous EKG monitoring was performed. Patient maintained sinus rhythm throughout the recording. There was approximately 1.3-1.5 mm of horizontal and downsloping ST depression noted in leads II, III and aVF which persisted throughout the infusion. This is of unclear significance. The maximum heart rate was 118 bpm which was 79% of maximum predicted heart rate the maximum workload was 1 metabolic equivalent. The resting blood pressure is 138/70 with a final blood pressure of 130/70 mmHg. Myocardial perfusion protocol. 11.5 mCi of technetium 99m sestamibi was injected at rest. 0.4 mg of regadenoson was infused per usual protocol. At peak infusion 33.6 mCi of technetium 99m sestamibi was injected stress images were obtained stress and rest images were reconstructed and compared in the short axis vertical long and horizontal long axis. Gated images were also obtained pre- Perfusion SPECT analysis: Review of the stress images demonstrated dilated cardiac silhouette size. There is a huge defect noted involving the mid anterior wall extending to the apex and the inferior apical wall. The anterior septal wall also demonstrates reduced perfusion. There is mildly reduced perfusion noted in the basal to mid inferior wall. On the resting images there is a persistent defect involving the anterior apical wall. The septum appears to have mildly improved perfusion especially the inferior septal wall ,the mid lateral wall appears to be well perfused. Small area of apical ischemia can also not be completely excluded. The mid inferior wall also appears to improve suggesting a mild amount of mid inferior ischemia. Gated SPECT analysis: The gated ejection fraction is noted to be 31% with segmental wall motion abnormalities involving the mid anterior wall apex and the inferior apical wall. Conclusion: Abnormal pharmacologic myocardial perfusion stress test with evidence of the following Mild inferior ischemia. Mild apical ischemia. Large mid anterior and anterior apical infarct. Normal lateral wall. Mild inferior septal ischemia.
== END ==
PROVIDERS: Family Provider Family Medicine; PCP Family Medicine; Visit Provider Internal Medicine Cardiovascular Disease
DX: I25.10 Atherosclerotic heart disease of native coronary artery without angina pectoris (principal); I10 Essential (primary) hypertension; Z98.61 Coronary angioplasty status
CPT/HCPCS: 78452; 93017; A9500; A4216; J2785

== ENCOUNTER 2017-12-23 07:20 | Emergency (ER) | payer MEDICARE, MEDICAID, SELFPAY ==
[2017-12-23 07:20] VITALS: BP 119/72; PULSE 86; RESP 15; TEMP 36.2; BMI 27.1
--- NOTE | 2017-12-23 07:46 | ED.VISSUMM ---
- ER Visit Summary Date of Service: 12/23/17 Chief Complaint: Buttock laceration History of Present Illness: The patient is a 72 F presents with buttock laceration. She sat down into her wheelchair and her buttock got caught on the wheelchair lock. She sustained a laceration to her buttock. She was scheduled for heart catheterization this morning at [facility]. Her media services director called and will reschedule her heart catheterization. She is also scheduled for dialysis later today. She denies any chest pain or shortness of breath. Denies other injuries. She is on aspirin and Plavix. Physical Examination: Vitals are stable. Patient is afebrile. Alert no acute distress. HEENT exam is unremarkable. Neck is supple. Lungs are clear and equal bilaterally. Heart is regular rate and rhythm. Abdomen is soft nontender nondistended. 5 cm laceration to the right buttock which ends 1 cm from rectum, no active bleeding. Extremities are unremarkable. Skin is warm and dry. Remainder of exam is unremarkable. Emergency Department Course and Treatment: She was given Tetanus IM. Discussed with Dr. Blandon who evaluated the patient and agrees there is no rectal involvement. She recommends wound closure with chromic suture. Wound was copiously irrigated. Anesthetized with lidocaine. 7, 3-0 simple sutures were placed. Advised close monitoring for infection. She is given a prescription for Augmentin. Advised to follow-up with primary care physician. Advised return to ED for worsening complaints. Disposition: Discharge home Impression: Buttock laceration, laceration repair This note was generated with [employer] dictation software. It may contain incorrect words, spelling, and punctuation that were not noted in review of the chart prior to signing ED Disposition - Plan for ED Patient: Chief Complaint: Laceration Instructions: ED Laceration All Prescriptions: Amox/Clavulanate Tablet [Augmentin Tablet] 875 mg PO Q12H #20 tablet Referrals: Thad Brandt MD [Primary Care Provider] -
--- NOTE | 2017-12-23 09:44 | ED.DEP ---
ED Disposition - Plan for ED Patient: Chief Complaint: Laceration Instructions: ED Laceration All Prescriptions: Amox/Clavulanate Tablet [Augmentin Tablet] 875 mg PO Q12H #20 tablet Referrals: Thad Brandt MD [Primary Care Provider] -
[2017-12-23] MEDS: Diphth,Pertuss(Acell),Tet Vac 0.5 ML Vial IM (10:04)
[2017-12-23 10:07] VITALS: BP 114/78; PULSE 84; RESP 16; O2SAT 100
[2017-12-23] MEDS: Amox/Clavulanate 875 MG Tablet PO (10:07)
--- NOTE | 2017-12-25 11:43 | CM.ED ---
Social Work Note Referral for placement. Introduced self and role to pt's granddaughter, Keira, who is present. Per Keira the pt has alzheimer's dementia an dlives with her father in a one-story home. Her father, Ariel, works and the pt is home alone frequently and they are concerned about her safety. Per Keira they have reached out to [facility] and have not heard back yet regarding availability. According to Keira she thinks they would like to have [facility], [facility] and [facility] checked into. Inquire if the pt wanders and she states know. States that she requires assistance with bathing and other ADLs. She no longer has HHC and was recently discharged from [facility] approximately 2-3 weeks ago. Provides contact number for sister Jaymie [[phone]]. Placed call to Jaymie. Introduced self and role at [facility]. After further conversation with Jaymie they would like SW to look into [facility] as they have a memory care unit and feel this would benefit the pt long-term. She also states that the pt's PCP is Dr. Brandt and she has an appointment with him tomorrow, but they have not been to see him in approximately two months. Claims that he has also suggested that they as a family consider discontinuing dialysis and initiating hospice services. Jaymie provides permission for to contact [facility] and send initial referral for review. Placed call to Nickie at [facility], admissions, and left vm inquiring about bed availability and updating that would be sending a referral shortly. Referral faxed. Will continue to follow and assist with discharge planning. LOC to be initiated once accepting facility confirmed. Janice Escalante, CONTACT WORKER, GINNING OPERATOR
--- NOTE | 2017-12-25 14:30 | CM.ED ---
Social Work Note Confirmed with [facility] that they can accept the pt in their dementia unit in a semi-private room. Communicated this to the pt's granddaughter, Jaymie, over the phone who would like to move forward with placement. Into pt's room and Keira had left. LOC submitted to [facility]. Will await approval. RN and Physician notified. Anticipate discharge to SNF this date. Plan: [facility] for intermediate level of care. Janice Escalante, TELEGRAPHER AGENT, CLINICAL CYTOPATHOLOGIST
== END 2017-12-23 10:09 | disposition home or self-care (01) ==
PROVIDERS: Emergency Provider Emergency Medicine; Family Provider Family Medicine; PCP Family Medicine
DX: S31.811A Laceration without foreign body of right buttock, initial encounter (principal); W26.8XXA Contact with other sharp object(s), not elsewhere classified, initial encounter; Y93.9 Activity, unspecified; Y92.9 Unspecified place or not applicable; F03.90 Unspecified dementia, unspecified severity, without behavioral disturbance, psychotic disturbance, mood disturbance, and anxiety; I25.10 Atherosclerotic heart disease of native coronary artery without angina pectoris; I25.2 Old myocardial infarction; E11.22 Type 2 diabetes mellitus with diabetic chronic kidney disease; I13.2 Hypertensive heart and chronic kidney disease with heart failure and with stage 5 chronic kidney disease, or end stage renal disease; I50.9 Heart failure, unspecified; N18.6 End stage renal disease; Z99.2 Dependence on renal dialysis; E78.00 Pure hypercholesterolemia, unspecified; J45.909 Unspecified asthma, uncomplicated; Z79.82 Long term (current) use of aspirin; Z79.02 Long term (current) use of antithrombotics/antiplatelets; Z79.899 Other long term (current) drug therapy
CPT/HCPCS: 12002; 90471; 90715; 99283

== ENCOUNTER → 2017-12-25 11:11 | Emergency (ER) | payer MEDICARE, MEDICAID, SELFPAY ==
[2017-12-25 11:12] VITALS: BP 128/64; PULSE 81; RESP 16; TEMP 36.7; O2SAT 99; BMI 25.4
--- NOTE | 2017-12-25 11:19 | ED.RN ---
PT HAS A HX OF DEMENTIA AND ALZHEIMERS, CONFUSION.
[2017-12-25 12:18] LABS: Absolute Neutrophil Count 8.2 X10^3/uL (2.0-7.7); Basophil# 0.01 X10^3/uL; Basophil% 0.1 % (0-1); Eosinophil# 0.08 X10^3/uL; Eosinophils% 0.8 % (0-5); Hematocrit 29.9 % (37-47); Hemoglobin 9.8 g/dl (12.0-15.0); Lymphocyte % 9.2 % (19-41); Mean Corp Hgb Conc 32.8 g/gl (32-36); Mean Corpuscular Volume 97.7 fL (81-99); Mean Platelet Vol. 10.4 fl (6.2-12.0); Monocyte# 0.53 X10^3/uL; Monocyte% 5.4 % (0-10); Neutrophil # 8.19 X10^3/uL (2.7-7.7); Neutrophil % 84.2 % (47-70); Platelet Count 276 K/mm3 (150-450); RBC Distribution Width CV 15.6 % (11.6-14.6); RBC Distribution Width SD 51.4 fl (35.1-43.9); Red Blood Count 3.06 M/mm3 (4.2-5.4); White Blood Count 9.7 K/mm3 (4.4-11.0)
[2017-12-25 12:20] LABS: POSITIVE COUNT NO; POSITIVE DIFFERENTIAL NO; POSITIVE MORPHOLOGY NO
[2017-12-25 12:25] LABS: ALB/GLOB Ratio 0.8 RATIO (0.9-2.4); AST(SGOT) 35 U/L (15-37); Alanine Aminotransfer ALT/SGPT 18 U/L (13-56); Albumin, Serum 2.9 g/dL (3.2-5.0); Alkaline Phosphatase 83 U/L (45-117); Anion Gap 5 (5-15); BUN 23 mg/dL (7-18); BUN/Creat Ratio 4.7 RATIO (10-20); Calcium,Total 9.3 mg/dL (8.5-10.1); Chloride 99 mmol/L (98-107); Creatinine, Serum 4.89 mg/dL (0.55-1.02); EST Glomerular Filtration Rate 9 mL/min (>60); Est Glom Filt Rate - Afr Amer 11 mL/min (>60); Estimated Creatinine Clearance 9.11 ml/min; Globulin 3.6 g/dL (2.2-4.2); Glucose 127 mg/dL (74-106); Potassium 4.3 mmol/L (3.5-5.1); Protein, Total 6.5 g/dL (6.4-8.2); Sodium Level 136 mmol/L (136-145)
[2017-12-25 13:31] VITALS: PULSE 80; RESP 16; O2SAT 96
[2017-12-25 13:35] VITALS: BP 94/63; PULSE 154; RESP 18; O2SAT 98
[2017-12-25 13:50] LABS: Bacteria 0 SEEN /hpf (None Seen); Mucous, Urine 0 SEEN /hpf (<or=2+); Red Blood Cells-Urine 0 SEEN /hpf (0-5); Squamous Epithelial Cells - UA 0 SEEN /hpf (5-10); White Blood Cells 0 SEEN /hpf (0-5)
[2017-12-25 14:01] LABS: Color, Urine Yellow (Yellow); Glucose, Dipstick Normal (Normal); Ketone-Dipstick Negative (Negative); Leukocyte Esterase-Dipstick Negative /ul (Negative); Nitrite-Dipstick Negative (Negative); Occult Blood-Urine Negative /ul (Negative); Protein-Dipstick 15 mg/dl (Negative); Urine Bilirubin Dipstick Negative (Negative); Urine Clarity Clear (Clear); Urine Urobilinogen Normal (Normal)
--- NOTE | 2017-12-25 15:00 | ED.VISSUMM ---
- ER Visit Summary Date of Service: 12/25/17 Chief Complaint: Wound check History of Present Illness: The patient is a 72 F who had a perirectal breakdown a few days ago and was sutured in the emergency department had a bowel movement today and thought 1 of the stitches came loose. She is also brought by family for worsening baseline mental status, she has a history of dementia and it has been progressive over the past few months, they specifically asked for ECF placement. Patient is alert and oriented ?2 which is chronic for her, she can remember what happened 2 days ago in the emergency department. Her only complaint is rectal pain. Physical Examination: Not appear in acute distress. Moist mucous membranes, no obvious facial deformity No C-spine tenderness supple neck. Regular rate and rhythm without any obvious murmurs Clear lungs bilaterally speaking in full sentences without any obvious respiratory distress Abdomen soft and nontender no guarding or rebound Rectal exam reveals a perirectal skin break, after cleaning, these sutures are mostly intact although there is a slight protuberance. Rectal exam does not show any fistula or tenderness in the rectum. Moves all extremities without any difficulty or pain. Skin does not show any obvious rashes or lesions, no trauma. Alert oriented x2 with no gross focal deficit. This is baseline for her. Emergency Department Course and Treatment: I checked blood work which is unremarkable. I did inject lidocaine and further explore the wound, there is nothing for me to suture. Wound will need to be maintained and kept clean. I do have social work working on possible placement, if not the family will choose to go home. The oncoming ED physician will oversee her care from this point on. She will need to be placed on prophylactic antibiotics since the wound does tend to get the. Impression: Perirectal laceration and breakdown Progressive dementia This note was generated with [employer] dictation software. It may contain incorrect words, spelling, and punctuation that were not noted in review of the chart prior to signing ED Disposition - Plan for ED Patient: Disposition: Home or Assisted Living Chief Complaint: Confusion Instructions: Wound Care Prescriptions: Ciprofloxacin [Cipro] 500 mg PO BID #20 tab Metronidazole [Flagyl] 500 mg PO TID #30 tab Referrals: Thad Brandt MD [Primary Care Provider] - 3-5 Days
[2017-12-25 15:03] VITALS: PULSE 78; RESP 17
--- NOTE | 2017-12-25 15:46 | CM.ED ---
Social Work Note LOC received from [facility]. Faxed copy to [facility] along with discharge orders. Transportation setup through [facility] via cot for 1700. Notified SNF, RN, granddaughter and physician of discharge plan and time. PAS/RR completed and submitted in the [facility]. Copies placed in packet. Confirmed dialysis is scheduled through [facility] Friday at 12 and they are currently using [facility] in [place] for transport to dialysis. Plan: [facility] for intermediate level of care. LOC received. Transport setup through [facility] via cot at 1700. Janice Escalante, ELEVATOR STARTER, PULLBOAT ENGINEER
--- NOTE | 2017-12-25 16:20 | ED.RN ---
called report to trey nurse at [facility]
[2017-12-25 16:21] VITALS: BP 123/73; RESP 14; O2SAT 100
--- NOTE | 2017-12-25 16:57 | NURSING ---
[facility] CALLED, SQUAD IS HELD UP, AT LEAST ANOTHER 45 MIN
== END | disposition home or self-care (01) ==
PROVIDERS: Emergency Provider Emergency Medicine; Family Provider Family Medicine; PCP Family Medicine
DX: S36.63XA Laceration of rectum, initial encounter (principal); X58.XXXA Exposure to other specified factors, initial encounter; Y93.9 Activity, unspecified; Y92.9 Unspecified place or not applicable; F03.90 Unspecified dementia, unspecified severity, without behavioral disturbance, psychotic disturbance, mood disturbance, and anxiety; N18.6 End stage renal disease
CPT/HCPCS: 80053; 81001; 85025; 96360; 96361; 99285; J7030; J7040

== ENCOUNTER 2018-03-20 16:24 | Emergency (ER) | payer MEDICARE, SELFPAY ==
[2018-03-20 16:25] VITALS: BP 166/62; PULSE 79; RESP 18; TEMP 36.8; O2SAT 94; BMI 28.3
--- NOTE | 2018-03-20 16:42 | ED.VISSUMM ---
- ER Visit Summary Date of Service: 03/20/18 Chief Complaint: Dysphagia History of Present Illness: The patient is a 72 F who presents with foreign body sensation on the right side of her throat that began this morning. Patient states she was eating breakfast and had a piece of sausage. Patient states she feels like it was stuck in her throat. Patient states she has been able to drink water and eat crackers. Patient states she had similar episodes in the past and Dr. Sharp had to do an endoscopy to remove the foreign body. Patient denies any fevers or chills. Patient denies any nausea or vomiting. Physical Examination: Vital signs are stable. Patient is afebrile. Patient is in no acute distress. Oral mucosa is pink and moist. Oropharynx is clear. Airway is patent. Neck is supple. Trachea is midline. There is no lymphadenopathy noted. Heart was regular rate and rhythm. Lungs are clear and equal bilaterally. Abdomen is soft. Bowel sounds are normal. There is no tenderness noted. There is no rebound or guarding noted. Cranial nerves II through XII are intact. There are no focal motor or sensory deficits noted. The remaining physical exam is within normal limits. Emergency Department Course and Treatment: Patient was given a dose of IV glucagon here. Patient felt better on reevaluation. Patient states she was able to cough up a couple pieces of phlegm. Patient states she no longer has the foreign body sensation in her throat. Patient was given p.o. fluids here and was able to swallow without difficulty. Patient will be discharged back to the extended care facility. Patient understood and was agreeable with the plan. All questions were answered. Disposition: Discharged home Impression: Dysphagia This note was generated with [employer] dictation software. It may contain incorrect words, spelling, and punctuation that were not noted in review of the chart prior to signing ED Disposition - Plan for ED Patient: Disposition: Home or Assisted Living Chief Complaint: Foreign Body Diagnosis: Dysphagia Instructions: ED Foreign Body Esophageal Rslv Referrals: Mariano Jean MD [Primary Care Provider] -
[2018-03-20] MEDS: Glucagon 1 MG/ML Syringe IV (17:13)
[2018-03-20 19:07] VITALS: BP 148/89; PULSE 78; RESP 14; O2SAT 98
== END 2018-03-20 19:08 | disposition home or self-care (01) ==
PROVIDERS: Emergency Provider Emergency Medicine; Family Provider Family Medicine; PCP Family Medicine
DX: R13.10 Dysphagia, unspecified (principal); R51 Headache; M19.90 Unspecified osteoarthritis, unspecified site; N28.9 Disorder of kidney and ureter, unspecified; Z99.2 Dependence on renal dialysis; Z79.82 Long term (current) use of aspirin; Z79.899 Other long term (current) drug therapy
CPT/HCPCS: 96374; 99285; A4216; J1610

== ENCOUNTER → 2018-05-06 05:00 | Outpatient (REF) | payer MEDICARE, SELFPAY ==
[2018-05-06 07:53] LABS: Absolute Lymphocyte Count 1.53 X10^3/ul (0.83-4.51); Absolute Neutrophil Count 4.5 X10^3/uL (2.0-7.7); Basophil# 0.02 X10^3/uL; Basophil% 0.3 % (0-1); Eosinophil# 0.58 X10^3/uL; Eosinophils% 7.9 % (0-5); Hematocrit 29.4 % (37-47); Lymphocyte # 1.53 X10^3/ul (4.0); Lymphocyte % 20.8 % (19-41); Mean Corp Hgb Conc 30.6 g/gl (32-36); Mean Corpuscular Hgb 32.4 pg (27.0-32.0); Mean Corpuscular Volume 105.8 fL (81-99); Mean Platelet Vol. 9.5 fl (6.2-12.0); Monocyte# 0.67 X10^3/uL; Monocyte% 9.1 % (0-10); Neutrophil # 4.51 X10^3/uL (2.7-7.7); Neutrophil % 61.4 % (47-70); Platelet Count 244 K/mm3 (150-450); RBC Distribution Width SD 55.9 fl (35.1-43.9); Red Blood Count 2.78 M/mm3 (4.2-5.4); White Blood Count 7.4 K/mm3 (4.4-11.0)
[2018-05-06 08:01] LABS: POSITIVE COUNT NO; POSITIVE DIFFERENTIAL NO; POSITIVE MORPHOLOGY NO
[2018-05-06 08:03] LABS: ALB/GLOB Ratio 0.7 RATIO (0.9-2.4); AST(SGOT) 35 U/L (15-37); Alanine Aminotransfer ALT/SGPT 27 U/L (13-56); Albumin, Serum 2.7 g/dL (3.2-5.0); Alkaline Phosphatase 99 U/L (45-117); Anion Gap 9 (5-15); BUN 34 mg/dL (7-18); Calcium,Total 9.7 mg/dL (8.5-10.1); Chloride 99 mmol/L (98-107); Cholesterol 104 mg/dL (200); Creatinine, Serum 4.86 mg/dL (0.55-1.02); EST Glomerular Filtration Rate 9 mL/min (>60); Est Glom Filt Rate - Afr Amer 11 mL/min (>60); Globulin 3.7 g/dL (2.2-4.2); Glucose 142 mg/dL (74-106); High Density Lipoprotein 56 mg/dL; Potassium 4.3 mmol/L (3.5-5.1); Protein, Total 6.4 g/dL (6.4-8.2); Sodium Level 140 mmol/L (136-145); Triglycerides 84 mg/dL; Very Low Density Lipoprotein 17 mg/dL (5-40)
[2018-05-06 08:39] LABS: Hemoglobin A1c 5.5 % (4.2-6.3)
== END ==
LOC: OLS.WHLCAR 05:00
PROVIDERS: Visit Provider Family Medicine
DX: I10 Essential (primary) hypertension (principal); E78.5 Hyperlipidemia, unspecified; I25.10 Atherosclerotic heart disease of native coronary artery without angina pectoris; N19 Unspecified kidney failure
CPT/HCPCS: 36415; 80053; 80061; 83036; 85025